=== PATIENT | female | born 1955 | race Caucasian/White ===

== ENCOUNTER 2017-10-09 11:59 | Inpatient (IN) | payer OTHER ==
[~2017-10-09] VITALS: Ht 162.6 cm; Wt 77.3 kg
[~2017-10-09 11:59] MED LIST: AMIO200T42 PO; CEFD250S26 PO; ESCI20TA10 PO; LORA1TAB PO; MORP100S3 PO; NYST1000 PO; PRED30TA2 PO; RIZA10TA34 PO
[2017-10-09] MEDS ORDERED: PLEASE ENTER HEIGHT AND WEIGHT MC SCH (12:30)
[2017-10-09] MEDS ORDERED: SODIUM CHLORIDE 0.9% 1,000ML IVBOLUS ONE ×2 (12:30→16:00)
[2017-10-09] MEDS ORDERED: SODIUM CHLORIDE FLUSH 10ML SYR IVF ONE (12:30)
[2017-10-09 13:00] LABS: MICROSCOPIC INDICATED
[2017-10-09 13:03] LABS: INTERNATIONAL NORMALIZED RATIO 1.08 (0.93-1.1); PROTHROMBIN TIME 11.1 Seconds (9.6-11.5)
[2017-10-09 13:04] LABS: MEAN CORPUSCULAR HEMOGLOBIN 32.6 pg (27.0-34.8); MEAN CORPUSCULAR HGB CONC 32.6 g/dL (32.4-35.8); MEAN CORPUSCULAR VOLUME 99.9 fL (80-100); MEAN PLATELET VOLUME 6.9 fL (7.4-10.4); PLATELET COUNT 333 x10^3/uL (130-400); RED BLOOD COUNT 2.76 x10^6/uL (3.82-5.3); RED CELL DISTRIBUTION WIDTH 22.9 % (9.6-15.2)
[2017-10-09 13:09] LABS: ALBUMIN 1.9 g/dL (3.4-5.0); ANION GAP 16 mmol/L (5-15); CALCIUM 8.9 mg/dL (8.5-10.1); CHLORIDE 93 mmol/L (98-107)
[2017-10-09 13:11] LABS: CULTURE INDICATED? NO
[2017-10-09 13:14] LABS: ALANINE AMINOTRANSFERASE 78 U/L (12-78); ALKALINE PHOSPHATASE 562 U/L (45-117); BILIRUBIN,TOTAL 1.7 mg/dL (0.2-1.0); CREATININE 1.01 mg/dL (0.55-1.02); TOTAL PROTEIN 6.5 g/dL (6.4-8.2)
[2017-10-09 13:36] LABS: BASOPHILS % (AUTO) 0 % (0-1); EOSINOPHILS # (AUTO) 0.01 x10^3/uL (0-0.4); EOSINOPHILS % (AUTO) 0 % (1-7); LYMPHOCYTES # (AUTO) 0.47 x10^3/uL (1-3.4); LYMPHOCYTES % (AUTO) 4 % (22-44); MD MORPH REVIEW ONLY; MONOCYTES # (AUTO) 0.09 x10^3/uL (0.2-0.8); MONOCYTES % (AUTO) 1 % (2-9); NEUTROPHILS # (AUTO) 11.43 x10^3/uL (1.8-6.8); NEUTROPHILS % (AUTO) 95 % (42-75)
[2017-10-09 13:38] LABS: ANISOCYTOSIS 1+; HOWELL-JOLLY BODIES 2+; HYPOCHROMIA 1+; OVALOCYTES 1+; SCHISTOCYTES 1+; SPHEROCYTES 1+
[2017-10-09 13:39] LABS: <PLATELET ESTIMATE> ADEQUATE
[2017-10-09 13:40] LABS: HYPOGRAN PLTS 1+; LARGE PLATELETS 1+
[2017-10-09 13:44] LABS: TARGET CELLS 1+
[2017-10-09] MEDS ORDERED: AZITHROMYCIN 500 MG in SODIUM CHLORIDE 0.9% 250 ML IV ONE (14:00)
[2017-10-09] MEDS ORDERED: POTASSIUM CHLORIDE 40 MEQ in SODIUM CHLORIDE 0.9% 500 ML IV ONE (14:00)
[2017-10-09] MEDS ORDERED: CEFTRIAXONE PMX 1GM/50ML 50 ML IV ONE (14:00)
[2017-10-09] MEDS ORDERED: CEFTRIAXONE PMX 1GM/50ML 50 ML ONE (14:30)
[2017-10-09] MEDS ORDERED: METOCLOPRAMIDE 5 MG/ML, 2ML ONE (14:30)
[2017-10-09] MEDS ORDERED: METOCLOPRAMIDE 5 MG/ML, 2ML IVPush ONE (14:30)
[2017-10-09] MEDS ORDERED: ACETAMINOPHEN 325 MG TABLET PO PRN (15:30)
[2017-10-09] MEDS ORDERED: LABETALOL 5MG/ML, 20ML IVPush PRN (15:30)
[2017-10-09] MEDS ORDERED: ENALAPRILAT 1.25 MG/ML, 2ML IVPush PRN (15:30)
[2017-10-09] MEDS ORDERED: POLYETHYLENE GLYCOL 17 GM PACKET PO PRN (15:30)
[2017-10-09] MEDS ORDERED: DOCUSATE 100 MG CAPSULE PO PRN (15:30)
[2017-10-09] MEDS ORDERED: BISACODYL 10 MG SUPP PR PRN (15:30)
[2017-10-09] MEDS ORDERED: LEVO100T5 PO (15:50)
[2017-10-09] MEDS ORDERED: RIVA10TA PO (15:50)
[2017-10-09] MEDS ORDERED: POTA25TA4 PO (15:50)
[2017-10-09] MEDS ORDERED: VANCOMYCIN PER PHARMACY MC PRN (16:00)
[2017-10-09 16:42] LABS: THYROID STIMULATING HORMONE 0.133 mIU/L (0.358-3.740)
[2017-10-09 17:05] VITALS: BP 117/75
[2017-10-09] MEDS ORDERED: PHARMACOKINETIC CONSULTATION MC ONE (17:30)
[2017-10-09] MEDS ORDERED: SODIUM CHLORIDE 0.9% IV SCH (17:30)
[2017-10-09] MEDS ORDERED: PHARMACOKINETIC MONITORING MC PRN (17:30)
[2017-10-09] MEDS: VANCOMYCIN 1,300 MG in SODIUM CHLORIDE 0.9% 250 ML IV SCH (17:30)
[2017-10-09] MEDS ORDERED: VANCOMYCIN IV SCH (17:30)
[2017-10-09] MEDS ORDERED: MAGNESIUM SULFATE PMX 2GM/50ML 50 ML IV ONE (18:00)
[2017-10-09] MEDS: SODIUM CHLORIDE 0.9% 1,000 ML IV SCH (19:00)
[2017-10-09 20:00] VITALS: BP 107/71
[2017-10-09 20:21] LABS: ANION GAP 10 mmol/L (5-15); CALCIUM 7.8 mg/dL (8.5-10.1); CHLORIDE 102 mmol/L (98-107); CREATININE 0.93 mg/dL (0.55-1.02)
[2017-10-09] MEDS: PIPERACILLIN/TAZO/PMX 4.5GM 100 ML IV SCH (22:24)
[2017-10-10] MEDS: SODIUM CHLORIDE 0.9% 1,000 ML IV SCH ×2 (04:00→20:52)
[2017-10-10 04:54] LABS: ALANINE AMINOTRANSFERASE 60 U/L (12-78); ALBUMIN 1.5 g/dL (3.4-5.0); ANION GAP 11 mmol/L (5-15); CALCIUM 7.6 mg/dL (8.5-10.1); CHLORIDE 103 mmol/L (98-107); CREATININE 0.94 mg/dL (0.55-1.02)
[2017-10-10 04:56] LABS: ALKALINE PHOSPHATASE 396 U/L (45-117); TOTAL PROTEIN 5.3 g/dL (6.4-8.2)
[2017-10-10 05:00] LABS: MEAN CORPUSCULAR HEMOGLOBIN 32.9 pg (27.0-34.8); MEAN CORPUSCULAR HGB CONC 32.9 g/dL (32.4-35.8); MEAN PLATELET VOLUME 6.9 fL (7.4-10.4); PLATELET COUNT 204 x10^3/uL (130-400); RED BLOOD COUNT 2.42 x10^6/uL (3.82-5.3)
[2017-10-10 05:35] LABS: MD YES
[2017-10-10 05:37] LABS: ANISOCYTOSIS 1+; BAND#(MANUAL) 0.81 x10^3/uL; BANDS%(MANUAL) 8 % (0-7); LYMPHS% (MANUAL) 4 % (22-44); SEG#(MANUAL) 8.89 x10^3/uL (1.8-6.8); SEGS% (MANUAL) 88 % (42-75)
[2017-10-10 05:38] LABS: OVALOCYTES 1+; SCHISTOCYTES 1+
[2017-10-10 05:40] LABS: SPHEROCYTES 1+
[2017-10-10 05:41] LABS: <PLATELET ESTIMATE> ADEQUATE; HOWELL-JOLLY BODIES 1+; LARGE PLATELETS 1+
[2017-10-10] MEDS: PIPERACILLIN/TAZO/PMX 4.5GM 100 ML IV SCH ×4 (05:49→22:39)
[2017-10-10 06:55] VITALS: BP 112/66
[2017-10-10] MEDS: ONDANSETRON 2MG/ML, 2ML IVPush PRN (10:08)
[2017-10-10] MEDS: VANCOMYCIN 1,300 MG in SODIUM CHLORIDE 0.9% 250 ML IV SCH (11:26)
[2017-10-10] MEDS: morphine SULFATE 10 MG/ML, 1ML IVPush PRN ×3 (11:26→23:18)
[2017-10-10 12:35] VITALS: BP 123/70
[2017-10-10] MEDS ORDERED: OMNIPAQUE 350 MG/ML, 100ML BOTTLE ONE (12:47)
[2017-10-10] MEDS ORDERED: [UNRECOGNIZED DRUG - OTHER] MC SCH (15:30)
[2017-10-10 19:46] VITALS: BP 106/60
[2017-10-10] MEDS: K-LYTE 25 MEQ TABLET.EFF PO SCH (20:52)
[2017-10-11 02:00] VITALS: BP 114/72
[2017-10-11] MEDS: SODIUM CHLORIDE 0.9% 1,000 ML IV SCH ×2 (04:00→17:12)
[2017-10-11] MEDS: morphine SULFATE 10 MG/ML, 1ML IVPush PRN ×3 (04:42→19:22)
[2017-10-11] MEDS: PIPERACILLIN/TAZO/PMX 4.5GM 100 ML IV SCH ×4 (04:42→23:07)
[2017-10-11 05:00] LABS: ALBUMIN 1.4 g/dL (3.4-5.0); ANION GAP 11 mmol/L (5-15); CHLORIDE 104 mmol/L (98-107); MEAN CORPUSCULAR HEMOGLOBIN 32.5 pg (27.0-34.8); MEAN CORPUSCULAR HGB CONC 32.5 g/dL (32.4-35.8); MEAN CORPUSCULAR VOLUME 100.1 fL (80-100); MEAN PLATELET VOLUME 6.9 fL (7.4-10.4); PLATELET COUNT 133 x10^3/uL (130-400); RED BLOOD COUNT 2.23 x10^6/uL (3.82-5.3)
[2017-10-11 05:03] LABS: ALANINE AMINOTRANSFERASE 57 U/L (12-78); ALKALINE PHOSPHATASE 347 U/L (45-117); BILIRUBIN,TOTAL 0.6 mg/dL (0.2-1.0); CREATININE 0.84 mg/dL (0.55-1.02); TOTAL PROTEIN 5.4 g/dL (6.4-8.2)
[2017-10-11] MEDS: VANCOMYCIN 1,300 MG in SODIUM CHLORIDE 0.9% 250 ML IV SCH ×2 (06:04→23:53)
[2017-10-11 07:04] LABS: MD YES
[2017-10-11 07:06] LABS: BAND#(MANUAL) 0.94 x10^3/uL; BANDS%(MANUAL) 8 % (0-7); BASOS#(MANUAL) 0.12 x10^3/uL (0-0.1); BASOS% (MANUAL) 1 % (0-1)
[2017-10-11 07:08] LABS: ANISOCYTOSIS 1+; LYMPH#(MANUAL) 0.24 x10^3/uL (1-3.4); LYMPHS% (MANUAL) 2 % (22-44); SEGS% (MANUAL) 89 % (42-75)
[2017-10-11 07:09] LABS: OVALOCYTES 1+; SCHISTOCYTES 1+; SPHEROCYTES 1+; TARGET CELLS 1+
[2017-10-11 07:10] LABS: <PLATELET ESTIMATE> ADEQUATE; HOWELL-JOLLY BODIES 2+
[2017-10-11 07:11] LABS: HYPOGRAN PLTS 1+; LARGE PLATELETS 1+
[2017-10-11 07:50] VITALS: BP 120/73
[2017-10-11] MEDS ORDERED: RIVAROXABAN 10 MG TABLET PO SCH (09:00)
[2017-10-11] MEDS: LEVOTHYROXINE 100 MCG TABLET PO SCH (09:10)
[2017-10-11] MEDS: K-LYTE 25 MEQ TABLET.EFF PO SCH (09:10)
[2017-10-11 11:57] VITALS: BP 113/69
[2017-10-11 15:13] LABS: OCCULT BLOOD POSITIVE (NEGATIVE)
[2017-10-11] MEDS ORDERED: POTASSIUM CHLORIDE 40 MEQ in SODIUM CHLORIDE 0.9% 100 ML IV ONE (16:30)
[2017-10-11] MEDS ORDERED: POTASSIUM CHLORIDE 40 MEQ in SODIUM CHLORIDE 0.9% 500 ML IV ONE (16:30)
[2017-10-11] MEDS: LORazepam 1MG TABLET PO PRN (17:11)
[2017-10-11 18:28] VITALS: BP 121/75
[2017-10-11] MEDS ORDERED: HEPARIN 5,000 UNITS/ML, 1ML IV ONE (18:30)
[2017-10-11] MEDS: TOPIRAMATE 25 MG TABLET PO SCH (19:23)
[2017-10-11] MEDS: ONDANSETRON 2MG/ML, 2ML IVPush PRN (23:01)
[2017-10-12] VITALS (7 sets, daily range): BP systolic 97–131; BP diastolic 58–79
[2017-10-12] MEDS: morphine SULFATE 10 MG/ML, 1ML IVPush PRN ×4 (00:12→20:56)
[2017-10-12] MEDS: HEPARIN 25,000 UNITS/500ML PMX 500 ML IV PRN (00:22)
[2017-10-12] MEDS ORDERED: HEPARIN 5,000 UNITS/ML, 1ML IV ONE (01:00)
[2017-10-12] MEDS: LEVOTHYROXINE 100 MCG TABLET PO SCH (04:53)
[2017-10-12] MEDS: PIPERACILLIN/TAZO/PMX 4.5GM 100 ML IV SCH ×4 (04:53→22:24)
[2017-10-12 07:09] LABS: ALANINE AMINOTRANSFERASE 53 U/L (12-78); ALBUMIN 1.4 g/dL (3.4-5.0); ANION GAP 11 mmol/L (5-15); CALCIUM 8.3 mg/dL (8.5-10.1); CHLORIDE 104 mmol/L (98-107); CREATININE 0.84 mg/dL (0.55-1.02)
[2017-10-12 07:11] LABS: ALKALINE PHOSPHATASE 373 U/L (45-117); BILIRUBIN,TOTAL 1.3 mg/dL (0.2-1.0); TOTAL PROTEIN 5.5 g/dL (6.4-8.2)
[2017-10-12 07:36] LABS: MD YES; MEAN CORPUSCULAR HEMOGLOBIN 32.2 pg (27.0-34.8); MEAN CORPUSCULAR HGB CONC 33.6 g/dL (32.4-35.8); MEAN CORPUSCULAR VOLUME 95.9 fL (80-100); MEAN PLATELET VOLUME 6.9 fL (7.4-10.4); PLATELET COUNT 79 x10^3/uL (130-400); RED BLOOD COUNT 2.69 x10^6/uL (3.82-5.3); RED CELL DISTRIBUTION WIDTH 24.7 % (9.6-15.2)
[2017-10-12 07:38] LABS: ANISOCYTOSIS 1+; BAND#(MANUAL) 0.78 x10^3/uL; BANDS%(MANUAL) 6 % (0-7); HOWELL-JOLLY BODIES 1+; LYMPH#(MANUAL) 0.13 x10^3/uL (1-3.4); LYMPHS% (MANUAL) 1 % (22-44); METAMYELOCYTES# (MANUAL) 0.13 x10^3/uL (0-0); METAMYELOCYTES% (MANUAL) 1 % (0-1); MONOS#(MANUAL) 0.26 x10^3/uL (0.3-2.7); MONOS% (MANUAL) 2 % (2-9); NRBC % (MANUAL) 1 % (0-1); SCHISTOCYTES 1+; SEGS% (MANUAL) 90 % (42-75)
[2017-10-12 07:39] LABS: <PLATELET ESTIMATE> DECREASED; OVALOCYTES 1+; SPHEROCYTES 1+
[2017-10-12 07:40] LABS: HYPOGRAN PLTS 1+; LARGE PLATELETS 1+
[2017-10-12] MEDS ORDERED: LORazepam 1MG TABLET PO SCH (09:00)
[2017-10-12] MEDS: POTASSIUM CHLORIDE 20 MEQ TAB.ER.PRT PO SCH ×2 (09:08→16:45)
[2017-10-12] MEDS: TOPIRAMATE 25 MG TABLET PO SCH (09:09)
[2017-10-12] MEDS: HEPARIN 5,000 UNITS/ML, 1ML IV PRN ×2 (11:02→21:05)
[2017-10-12] MEDS: SODIUM CHLORIDE 0.9% 1,000 ML IV SCH (13:00)
[2017-10-12] MEDS: PANTOPRAZOLE 40 MG IV IVPush SCH ×2 (13:08→23:01)
[2017-10-12] MEDS: LORazepam 1MG TABLET PO PRN ×2 (13:30→23:01)
[2017-10-12] MEDS ORDERED: GOLYTELY 4,000ML ORAL.SOL PO ONE (16:00)
[2017-10-12] MEDS ORDERED: VANCOMYCIN 1,400 MG in SODIUM CHLORIDE 0.9% 250 ML IV SCH (23:00)
[2017-10-13] MEDS: HEPARIN 25,000 UNITS/500ML PMX 500 ML IV PRN (00:57)
[2017-10-13 02:25] VITALS: BP 136/82
[2017-10-13] MEDS: SODIUM CHLORIDE 0.9% 1,000 ML IV SCH (03:00)
[2017-10-13 03:42] LABS: MEAN CORPUSCULAR HEMOGLOBIN 31.2 pg (27.0-34.8); MEAN CORPUSCULAR HGB CONC 33.1 g/dL (32.4-35.8); MEAN CORPUSCULAR VOLUME 94.1 fL (80-100); MEAN PLATELET VOLUME 7.4 fL (7.4-10.4); PLATELET COUNT 61 x10^3/uL (130-400); RED BLOOD COUNT 2.77 x10^6/uL (3.82-5.3); RED CELL DISTRIBUTION WIDTH 24.2 % (9.6-15.2)
[2017-10-13 03:52] LABS: ALANINE AMINOTRANSFERASE 56 U/L (12-78); ALBUMIN 1.4 g/dL (3.4-5.0); ANION GAP 9 mmol/L (5-15); CALCIUM 8.3 mg/dL (8.5-10.1); CHLORIDE 108 mmol/L (98-107); CREATININE 0.84 mg/dL (0.55-1.02)
[2017-10-13 03:54] LABS: ALKALINE PHOSPHATASE 394 U/L (45-117); BILIRUBIN,TOTAL 0.8 mg/dL (0.2-1.0); TOTAL PROTEIN 5.4 g/dL (6.4-8.2)
[2017-10-13 03:56] LABS: MD YES
[2017-10-13 03:58] LABS: BAND#(MANUAL) 0.43 x10^3/uL; BANDS%(MANUAL) 4 % (0-7); METAMYELOCYTES# (MANUAL) 0.11 x10^3/uL (0-0); METAMYELOCYTES% (MANUAL) 1 % (0-1); MONOS#(MANUAL) 0.11 x10^3/uL (0.3-2.7); MONOS% (MANUAL) 1 % (2-9); NRBC % (MANUAL) 4 % (0-1); SEG#(MANUAL) 10.15 x10^3/uL (1.8-6.8); SEGS% (MANUAL) 94 % (42-75)
[2017-10-13 04:00] LABS: ANISOCYTOSIS 1+
[2017-10-13 04:01] LABS: <PLATELET ESTIMATE> DECREASED; HOWELL-JOLLY BODIES 1+; HYPOCHROMIA 1+; OVALOCYTES 1+; POLYCHROMASIA 1+; SCHISTOCYTES 1+; SPHEROCYTES 1+; TARGET CELLS 1+
[2017-10-13 04:02] LABS: HYPOGRAN PLTS 1+; LARGE PLATELETS 1+
[2017-10-13] MEDS: PIPERACILLIN/TAZO/PMX 4.5GM 100 ML IV SCH (04:39)
[2017-10-13] MEDS: LEVOTHYROXINE 100 MCG TABLET PO SCH (06:16)
[2017-10-13 08:00] VITALS: BP 127/77
[2017-10-13] MEDS: POTASSIUM CHLORIDE 20 MEQ TAB.ER.PRT PO SCH ×2 (09:30→17:58)
[2017-10-13] MEDS: TOPIRAMATE 25 MG TABLET PO SCH (09:30)
[2017-10-13] MEDS ORDERED: MIDAZOLAM 1 MG/ML, 2ML ONE (11:50)
[2017-10-13] MEDS ORDERED: FENTANYL PF 100 MCG/2ML ONE (11:50)
[2017-10-13] MEDS ORDERED: ACETAMINOPHEN 325 MG TABLET PO PRN (12:00)
[2017-10-13] MEDS ORDERED: HYDROmorphone 1 MG/ML, 1ML IV PRN (12:00)
[2017-10-13] MEDS ORDERED: hydrALAzine 20 MG/ML, 1ML IV PRN (12:00)
[2017-10-13] MEDS ORDERED: PROMETHAZINE 25 MG/ML, 1ML IV PRN (12:00)
[2017-10-13] MEDS ORDERED: FENTANYL PF 100 MCG/2ML IV PRN (12:00)
[2017-10-13] MEDS ORDERED: MEPERIDINE/PF 25MG/0.5ML IVPush PRN (12:00)
[2017-10-13] MEDS ORDERED: morphine SULFATE 10 MG/ML, 1ML IV PRN (12:00)
[2017-10-13] MEDS ORDERED: ONDANSETRON 2MG/ML, 2ML IVPush PRN (12:00)
[2017-10-13] MEDS ORDERED: OXYcodone 5 MG/5 ML ORAL.SOL UDC PO PRN (12:00)
[2017-10-13] MEDS ORDERED: LABETALOL 5MG/ML, 20ML IV PRN (12:00)
[2017-10-13] MEDS ORDERED: ONDANSETRON 2MG/ML, 2ML ONE (12:15)
[2017-10-13] MEDS: DOXYCYCLINE 100 MG in DEXTROSE 5% 250 ML IV SCH (13:38)
[2017-10-13] MEDS: PANTOPRAZOLE 40 MG IV IVPush SCH ×2 (13:38→23:17)
[2017-10-13] MEDS: CEFTRIAXONE PMX 1GM/50ML 50 ML IV SCH (15:03)
[2017-10-13 15:58] VITALS: BP 138/82
[2017-10-13] MEDS ORDERED: GOLYTELY 4,000ML ORAL.SOL PO ONE (17:00)
[2017-10-13] MEDS: morphine SULFATE 10 MG/ML, 1ML IVPush PRN (17:58)
[2017-10-13] MEDS: LORazepam 1MG TABLET PO PRN (20:12)
[2017-10-13 20:32] VITALS: BP 121/76
[2017-10-13] MEDS: ONDANSETRON 2MG/ML, 2ML IVPush PRN (23:15)
[2017-10-14] MEDS: DOXYCYCLINE 100 MG in DEXTROSE 5% 250 ML IV SCH ×2 (00:33→12:07)
[2017-10-14] MEDS ORDERED: POLYETHYLENE GLYCOL 17 GM PACKET PO ONE (01:30)
[2017-10-14] MEDS ORDERED: ONDANSETRON 2MG/ML, 2ML IVPush ONE (02:00)
[2017-10-14] MEDS: morphine SULFATE 10 MG/ML, 1ML IVPush PRN ×3 (02:24→23:35)
[2017-10-14 02:30] VITALS: BP 143/87
[2017-10-14 05:09] VITALS: BP 92/61
[2017-10-14] MEDS: LEVOTHYROXINE 100 MCG TABLET PO SCH (05:35)
[2017-10-14 05:54] LABS: MEAN PLATELET VOLUME 8.2 fL (7.4-10.4); RED BLOOD COUNT 2.94 x10^6/uL (3.82-5.3); RED CELL DISTRIBUTION WIDTH 24.3 % (9.6-15.2)
[2017-10-14 05:57] LABS: ALANINE AMINOTRANSFERASE 64 U/L (12-78); ALBUMIN 1.4 g/dL (3.4-5.0); ANION GAP 9 mmol/L (5-15); CALCIUM 8.1 mg/dL (8.5-10.1); CHLORIDE 106 mmol/L (98-107); CREATININE 0.86 mg/dL (0.55-1.02); PLATELET COUNT 42 x10^3/uL (130-400)
[2017-10-14 05:59] LABS: ALKALINE PHOSPHATASE 479 U/L (45-117); BILIRUBIN,TOTAL 0.6 mg/dL (0.2-1.0); TOTAL PROTEIN 5.3 g/dL (6.4-8.2)
[2017-10-14 06:13] LABS: MD YES
[2017-10-14 06:16] LABS: BAND#(MANUAL) 0.33 x10^3/uL; BANDS%(MANUAL) 4 % (0-7); EOS#(MANUAL) 0.25 x10^3/uL (0.0-0.4); EOS% (MANUAL) 3 % (1-7); LYMPH#(MANUAL) 0.17 x10^3/uL (1-3.4); LYMPHS% (MANUAL) 2 % (22-44); METAMYELOCYTES# (MANUAL) 0.08 x10^3/uL (0-0); METAMYELOCYTES% (MANUAL) 1 % (0-1); MONOS#(MANUAL) 0.17 x10^3/uL (0.3-2.7); MONOS% (MANUAL) 2 % (2-9); NRBC % (MANUAL) 4 % (0-1); SEGS% (MANUAL) 88 % (42-75)
[2017-10-14 06:17] LABS: ANISOCYTOSIS 1+; HOWELL-JOLLY BODIES 1+; OVALOCYTES 1+; POLYCHROMASIA 1+
[2017-10-14 06:20] LABS: SCHISTOCYTES 1+
[2017-10-14 06:21] LABS: <PLATELET ESTIMATE> DECREASED; <PLT MORPHOLOGY> NORMAL PLT MORPH; SPHEROCYTES 1+
[2017-10-14 07:55] VITALS: BP 102/68
[2017-10-14] MEDS: POTASSIUM CHLORIDE 20 MEQ TAB.ER.PRT PO SCH ×2 (12:00→18:18)
[2017-10-14] MEDS: PANTOPRAZOLE 40 MG IV IVPush SCH ×2 (12:00→23:13)
[2017-10-14] MEDS: TOPIRAMATE 25 MG TABLET PO SCH (12:00)
[2017-10-14] MEDS: CEFTRIAXONE PMX 1GM/50ML 50 ML IV SCH (14:04)
[2017-10-14 16:00] VITALS: BP 108/72
[2017-10-14] MEDS ORDERED: GOLYTELY 4,000ML ORAL.SOL PO ONE (17:00)
[2017-10-14 19:52] VITALS: BP 123/85
[2017-10-15] VITALS (7 sets, daily range): BP systolic 107–120; BP diastolic 69–76
[2017-10-15] MEDS: DOXYCYCLINE 100 MG in DEXTROSE 5% 250 ML IV SCH ×2 (00:16→18:24)
[2017-10-15] MEDS: LEVOTHYROXINE 100 MCG TABLET PO SCH (05:51)
[2017-10-15 06:30] LABS: CHLORIDE 107 mmol/L (98-107)
[2017-10-15 06:50] LABS: MD YES; MEAN CORPUSCULAR HEMOGLOBIN 32.4 pg (27.0-34.8); MEAN CORPUSCULAR HGB CONC 33.3 g/dL (32.4-35.8); MEAN CORPUSCULAR VOLUME 97.6 fL (80-100); MEAN PLATELET VOLUME 8.8 fL (7.4-10.4); RED BLOOD COUNT 2.96 x10^6/uL (3.82-5.3); RED CELL DISTRIBUTION WIDTH 24.3 % (9.6-15.2)
[2017-10-15 06:55] LABS: ALANINE AMINOTRANSFERASE 69 U/L (12-78); ALBUMIN 1.4 g/dL (3.4-5.0); ALKALINE PHOSPHATASE 548 U/L (45-117); ANION GAP 10 mmol/L (5-15); BILIRUBIN,TOTAL 0.4 mg/dL (0.2-1.0); CALCIUM 8.5 mg/dL (8.5-10.1); CREATININE 0.81 mg/dL (0.55-1.02); PLATELET COUNT 39 x10^3/uL (130-400); TOTAL PROTEIN 5.4 g/dL (6.4-8.2)
[2017-10-15 07:00] LABS: BAND#(MANUAL) 0.18 x10^3/uL; BANDS%(MANUAL) 2 % (0-7); EOS#(MANUAL) 0.18 x10^3/uL (0.0-0.4); EOS% (MANUAL) 2 % (1-7); METAMYELOCYTES# (MANUAL) 0.09 x10^3/uL (0-0); METAMYELOCYTES% (MANUAL) 1 % (0-1); NRBC % (MANUAL) 4 % (0-1); SEG#(MANUAL) 7.82 x10^3/uL (1.8-6.8); SEGS% (MANUAL) 85 % (42-75)
[2017-10-15 07:01] LABS: HOWELL-JOLLY BODIES 1+; LYMPH#(MANUAL) 0.37 x10^3/uL (1-3.4); LYMPHS% (MANUAL) 4 % (22-44); MONOS#(MANUAL) 0.55 x10^3/uL (0.3-2.7); MONOS% (MANUAL) 6 % (2-9)
[2017-10-15 07:02] LABS: ANISOCYTOSIS 1+; POLYCHROMASIA 1+
[2017-10-15 07:03] LABS: HYPOCHROMIA 1+; OVALOCYTES 1+; SCHISTOCYTES 1+; SPHEROCYTES 1+
[2017-10-15 07:04] LABS: <PLATELET ESTIMATE> DECREASED; LARGE PLATELETS 1+
[2017-10-15] MEDS: POTASSIUM CHLORIDE 20 MEQ TAB.ER.PRT PO SCH ×2 (08:00→18:24)
[2017-10-15] MEDS: TOPIRAMATE 25 MG TABLET PO SCH (09:00)
[2017-10-15] MEDS: ONDANSETRON 2MG/ML, 2ML IVPush PRN (09:01)
[2017-10-15] MEDS: morphine SULFATE 10 MG/ML, 1ML IVPush PRN ×4 (09:12→21:41)
[2017-10-15] MEDS: PANTOPRAZOLE 40 MG IV IVPush SCH ×2 (11:30→22:59)
[2017-10-15] MEDS: CEFTRIAXONE PMX 1GM/50ML 50 ML IV SCH (12:54)
[2017-10-15] MEDS ORDERED: PROPOFOL 10 MG/ML, 20ML ONE (16:10)
[2017-10-15] MEDS ORDERED: MIDAZOLAM 1 MG/ML, 2ML ONE (16:22)
[2017-10-15] MEDS ORDERED: ONDANSETRON 2MG/ML, 2ML ONE (16:23)
[2017-10-15] MEDS ORDERED: METOPROLOL 1 MG/ML, 5ML IV PRN (16:30)
[2017-10-15] MEDS ORDERED: ALBUTEROL SULFATE 2.5 MG/3 ML NPPB PRN (16:30)
[2017-10-15] MEDS ORDERED: ONDANSETRON 2MG/ML, 2ML IVPush PRN (16:30)
[2017-10-15] MEDS ORDERED: HYDROcodone/APAP 7.5-325MG/15ML UDC PO PRN (16:30)
[2017-10-15] MEDS ORDERED: EPHEDRINE 50 MG/ML, 1ML IVPush PRN (16:30)
[2017-10-15] MEDS ORDERED: MEPERIDINE/PF 25MG/0.5ML IVPush PRN (16:30)
[2017-10-15] MEDS ORDERED: hydrALAzine 20 MG/ML, 1ML IV PRN (16:30)
[2017-10-15] MEDS ORDERED: HYDROmorphone 1 MG/ML, 1ML IV PRN (16:30)
[2017-10-15] MEDS ORDERED: PROMETHAZINE 25 MG/ML, 1ML IV PRN (16:30)
[2017-10-15] MEDS ORDERED: LABETALOL 5MG/ML, 20ML IV PRN (16:30)
[2017-10-15] MEDS ORDERED: FENTANYL PF 100 MCG/2ML IV PRN (16:30)
[2017-10-15] MEDS ORDERED: ACETAMINOPHEN 325 MG TABLET PO PRN (16:30)
[2017-10-15] MEDS ORDERED: OXYcodone 5 MG/5 ML ORAL.SOL UDC PO PRN (16:30)
[2017-10-15] MEDS ORDERED: METOCLOPRAMIDE 5 MG/ML, 2ML IV PRN (16:30)
[2017-10-15] MEDS ORDERED: PROMETHAZINE 25 MG/ML, 1ML ONE (16:58)
[2017-10-15] MEDS: LORazepam 1MG TABLET PO PRN (21:41)
[2017-10-16] VITALS (7 sets, daily range): BP systolic 110–125; BP diastolic 68–77
[2017-10-16] MEDS: DOXYCYCLINE 100 MG in DEXTROSE 5% 250 ML IV SCH ×3 (00:47→23:53)
[2017-10-16] MEDS: morphine SULFATE 10 MG/ML, 1ML IVPush PRN ×5 (08:29→21:44)
[2017-10-16] MEDS: TOPIRAMATE 25 MG TABLET PO SCH (08:29)
[2017-10-16] MEDS: POTASSIUM CHLORIDE 20 MEQ TAB.ER.PRT PO SCH ×2 (08:29→18:30)
[2017-10-16] MEDS: LEVOTHYROXINE 100 MCG TABLET PO SCH (08:29)
[2017-10-16 09:31] LABS: ALBUMIN 1.5 g/dL (3.4-5.0); CHLORIDE 106 mmol/L (98-107)
[2017-10-16 09:35] LABS: ALANINE AMINOTRANSFERASE 58 U/L (12-78); ALKALINE PHOSPHATASE 608 U/L (45-117); ANION GAP 10 mmol/L (5-15); BILIRUBIN,TOTAL 0.6 mg/dL (0.2-1.0); CREATININE 0.88 mg/dL (0.55-1.02); TOTAL PROTEIN 5.2 g/dL (6.4-8.2)
[2017-10-16 10:28] LABS: MEAN CORPUSCULAR HEMOGLOBIN 31.8 pg (27.0-34.8); MEAN CORPUSCULAR VOLUME 96.4 fL (80-100); MEAN PLATELET VOLUME 9.2 fL (7.4-10.4); RED BLOOD COUNT 3.06 x10^6/uL (3.82-5.3)
[2017-10-16 10:31] LABS: PLATELET COUNT 33 x10^3/uL (130-400)
[2017-10-16 10:40] LABS: MD YES
[2017-10-16 10:43] LABS: BAND#(MANUAL) 0.66 x10^3/uL; BANDS%(MANUAL) 9 % (0-7); EOS#(MANUAL) 0.22 x10^3/uL (0.0-0.4); EOS% (MANUAL) 3 % (1-7); LYMPH#(MANUAL) 0.29 x10^3/uL (1-3.4); LYMPHS% (MANUAL) 4 % (22-44); MONOS#(MANUAL) 0.29 x10^3/uL (0.3-2.7); MONOS% (MANUAL) 4 % (2-9); NRBC % (MANUAL) 7 % (0-1); REACTIVE LYMPHS # (MANUAL) 0.07 x10^3/uL (0-0); REACTIVE LYMPHS % (MANUAL) 1 % (0-0); SEG#(MANUAL) 5.77 x10^3/uL (1.8-6.8); SEGS% (MANUAL) 79 % (42-75)
[2017-10-16 10:45] LABS: HOWELL-JOLLY BODIES 1+; OVALOCYTES 1+; SCHISTOCYTES 1+; SPHEROCYTES 1+
[2017-10-16 10:46] LABS: <PLATELET ESTIMATE> DECREASED; <PLT MORPHOLOGY> NORMAL PLT MORPH; ANISOCYTOSIS 2+; HYPOCHROMIA 1+; POLYCHROMASIA 1+; TARGET CELLS 1+
[2017-10-16] MEDS: FUROSEMIDE 20 MG/2 ML IV SCH (11:29)
[2017-10-16] MEDS: PANTOPRAZOLE 40 MG IV IVPush SCH ×2 (12:13→23:49)
[2017-10-16] MEDS: CEFTRIAXONE PMX 1GM/50ML 50 ML IV SCH (12:14)
[2017-10-16] MEDS: RIVAROXABAN 15 MG TABLET PO SCH (18:30)
[2017-10-16] MEDS: LORazepam 1MG TABLET PO PRN (21:43)
[2017-10-17 01:33] VITALS: BP 112/71
[2017-10-17] MEDS: LEVOTHYROXINE 100 MCG TABLET PO SCH (06:02)
[2017-10-17 06:35] LABS: ALBUMIN 1.6 g/dL (3.4-5.0); CALCIUM 8.7 mg/dL (8.5-10.1); CHLORIDE 105 mmol/L (98-107)
[2017-10-17 06:39] LABS: ALANINE AMINOTRANSFERASE 56 U/L (12-78); ALKALINE PHOSPHATASE 596 U/L (45-117); ANION GAP 9 mmol/L (5-15); BILIRUBIN,TOTAL 0.5 mg/dL (0.2-1.0); TOTAL PROTEIN 5.8 g/dL (6.4-8.2)
[2017-10-17 06:49] LABS: MEAN CORPUSCULAR HEMOGLOBIN 32.2 pg (27.0-34.8); MEAN CORPUSCULAR HGB CONC 33.1 g/dL (32.4-35.8); MEAN CORPUSCULAR VOLUME 97.2 fL (80-100); RED BLOOD COUNT 2.91 x10^6/uL (3.82-5.3); RED CELL DISTRIBUTION WIDTH 23.8 % (9.6-15.2)
[2017-10-17 06:53] LABS: MEAN PLATELET VOLUME 9.7 fL (7.4-10.4)
[2017-10-17 06:54] LABS: PLATELET COUNT 45 x10^3/uL (130-400)
[2017-10-17 06:55] LABS: MD YES
[2017-10-17 07:07] LABS: BAND#(MANUAL) 0.73 x10^3/uL; BANDS%(MANUAL) 9 % (0-7); BASOS#(MANUAL) 0.08 x10^3/uL (0-0.1); BASOS% (MANUAL) 1 % (0-1); EOS#(MANUAL) 0.16 x10^3/uL (0.0-0.4); EOS% (MANUAL) 2 % (1-7); LYMPH#(MANUAL) 0.32 x10^3/uL (1-3.4); LYMPHS% (MANUAL) 4 % (22-44); MONOS#(MANUAL) 0.32 x10^3/uL (0.3-2.7); MONOS% (MANUAL) 4 % (2-9); NRBC % (MANUAL) 6 % (0-1); SEG#(MANUAL) 6.48 x10^3/uL (1.8-6.8); SEGS% (MANUAL) 80 % (42-75)
[2017-10-17 07:12] LABS: ANISOCYTOSIS 2+; HOWELL-JOLLY BODIES 1+; OVALOCYTES 1+; POLYCHROMASIA 1+; TARGET CELLS 1+
[2017-10-17 07:13] LABS: SCHISTOCYTES 1+
[2017-10-17 07:14] LABS: <PLATELET ESTIMATE> DECREASED; <PLT MORPHOLOGY> NORMAL PLT MORPH
[2017-10-17 07:55] VITALS: BP 123/81
[2017-10-17] MEDS: FUROSEMIDE 20 MG/2 ML IV SCH (08:10)
[2017-10-17] MEDS: TOPIRAMATE 25 MG TABLET PO SCH (08:11)
[2017-10-17] MEDS: RIVAROXABAN 15 MG TABLET PO SCH ×2 (08:11→16:46)
[2017-10-17] MEDS: POTASSIUM CHLORIDE 20 MEQ TAB.ER.PRT PO SCH ×2 (08:11→16:45)
[2017-10-17] MEDS: morphine SULFATE 10 MG/ML, 1ML IVPush PRN ×3 (08:20→20:43)
[2017-10-17] MEDS: PANTOPRAZOLE 40 MG IV IVPush SCH ×2 (10:51→23:19)
[2017-10-17] MEDS ORDERED: DOXY100T PO (11:16)
[2017-10-17] MEDS ORDERED: CEFD300C37 PO (11:16)
[2017-10-17] MEDS ORDERED: POTA20TA6 PO (11:16)
[2017-10-17] MEDS ORDERED: RIVA15TA PO (11:16)
[2017-10-17] MEDS ORDERED: TOPI25TA32 PO (11:16)
[2017-10-17] MEDS ORDERED: HYDR-3240 PO (11:16)
[2017-10-17] MEDS ORDERED: PRED20TA PO (11:16)
[2017-10-17] MEDS ORDERED: PANT40TA3 PO (11:16)
[2017-10-17] MEDS ORDERED: LORA-446 PO (11:16)
[2017-10-17] MEDS: CEFTRIAXONE 1,000 MG in DEXTROSE 5% 50 ML IV SCH (11:39)
[2017-10-17] MEDS: DOXYCYCLINE 100 MG in DEXTROSE 5% 250 ML IV SCH (12:07)
[2017-10-17 14:00] VITALS: BP 111/74
[2017-10-17] MEDS: LORazepam 1MG TABLET PO PRN (16:11)
[2017-10-17 20:17] VITALS: BP 125/76
[2017-10-18] MEDS: LORazepam 1MG TABLET PO PRN ×2 (00:39→19:20)
[2017-10-18] MEDS: DOXYCYCLINE 100 MG in DEXTROSE 5% 250 ML IV SCH ×2 (00:39→13:18)
[2017-10-18] MEDS: morphine SULFATE 10 MG/ML, 1ML IVPush PRN ×5 (00:40→20:54)
[2017-10-18 02:14] VITALS: BP 120/76
[2017-10-18] MEDS: LEVOTHYROXINE 100 MCG TABLET PO SCH (05:13)
[2017-10-18 07:29] LABS: ANION GAP 8 mmol/L (5-15); CALCIUM 8.4 mg/dL (8.5-10.1); CHLORIDE 106 mmol/L (98-107); CREATININE 0.91 mg/dL (0.55-1.02)
[2017-10-18 07:48] VITALS: BP 111/75
[2017-10-18 07:56] LABS: MEAN CORPUSCULAR HEMOGLOBIN 31.2 pg (27.0-34.8); MEAN CORPUSCULAR HGB CONC 32.7 g/dL (32.4-35.8); MEAN CORPUSCULAR VOLUME 95.6 fL (80-100); RED BLOOD COUNT 2.96 x10^6/uL (3.82-5.3); RED CELL DISTRIBUTION WIDTH 23.5 % (9.6-15.2)
[2017-10-18 07:57] LABS: MD YES; MEAN PLATELET VOLUME 10.7 fL (7.4-10.4); PLATELET COUNT 68 x10^3/uL (130-400)
[2017-10-18 08:02] LABS: BAND#(MANUAL) 0.85 x10^3/uL; BANDS%(MANUAL) 11 % (0-7); BASOS#(MANUAL) 0.08 x10^3/uL (0-0.1); BASOS% (MANUAL) 1 % (0-1); LYMPH#(MANUAL) 0.23 x10^3/uL (1-3.4); LYMPHS% (MANUAL) 3 % (22-44); MONOS#(MANUAL) 0.69 x10^3/uL (0.3-2.7); MONOS% (MANUAL) 9 % (2-9); NRBC % (MANUAL) 2 % (0-1); SEG#(MANUAL) 5.85 x10^3/uL (1.8-6.8); SEGS% (MANUAL) 76 % (42-75)
[2017-10-18 08:03] LABS: ANISOCYTOSIS 2+
[2017-10-18 08:04] LABS: <PLATELET ESTIMATE> DECREASED; <PLT MORPHOLOGY> NORMAL PLT MORPH; HOWELL-JOLLY BODIES 1+; OVALOCYTES 1+; POLYCHROMASIA 1+; TARGET CELLS 1+
[2017-10-18] MEDS: FUROSEMIDE 20 MG/2 ML IV SCH (08:55)
[2017-10-18] MEDS: POTASSIUM CHLORIDE 20 MEQ TAB.ER.PRT PO SCH ×2 (08:58→16:48)
[2017-10-18] MEDS: RIVAROXABAN 15 MG TABLET PO SCH ×2 (08:58→16:48)
[2017-10-18] MEDS: TOPIRAMATE 25 MG TABLET PO SCH (08:58)
[2017-10-18] MEDS: CEFTRIAXONE 1,000 MG in DEXTROSE 5% 50 ML IV SCH (11:59)
[2017-10-18] MEDS: PANTOPRAZOLE 40 MG IV IVPush SCH ×2 (11:59→23:53)
[2017-10-18 13:39] VITALS: BP 102/68
[2017-10-18] MEDS: NYSTATIN 500,000 UNITS/5 ML UDC PO SCH (19:21)
[2017-10-18 20:05] VITALS: BP 108/76
[2017-10-19] MEDS: DOXYCYCLINE 100 MG in DEXTROSE 5% 250 ML IV SCH ×2 (00:32→12:31)
[2017-10-19 02:52] VITALS: BP 115/76
[2017-10-19] MEDS: LEVOTHYROXINE 100 MCG TABLET PO SCH (05:11)
[2017-10-19 07:15] VITALS: BP 109/78
[2017-10-19] MEDS: FUROSEMIDE 20 MG/2 ML IV SCH (08:11)
[2017-10-19] MEDS: POTASSIUM CHLORIDE 20 MEQ TAB.ER.PRT PO SCH ×2 (08:11→17:03)
[2017-10-19] MEDS: TOPIRAMATE 25 MG TABLET PO SCH (08:11)
[2017-10-19] MEDS: NYSTATIN 500,000 UNITS/5 ML UDC PO SCH ×2 (08:11→20:53)
[2017-10-19] MEDS: ONDANSETRON 2MG/ML, 2ML IVPush PRN (08:12)
[2017-10-19] MEDS: morphine SULFATE 10 MG/ML, 1ML IVPush PRN ×3 (08:12→20:53)
[2017-10-19] MEDS: RIVAROXABAN 15 MG TABLET PO SCH ×2 (08:12→17:03)
[2017-10-19 08:18] LABS: ANION GAP 11 mmol/L (5-15); CHLORIDE 104 mmol/L (98-107)
[2017-10-19 08:54] LABS: MD YES; MEAN CORPUSCULAR HEMOGLOBIN 31.6 pg (27.0-34.8); MEAN CORPUSCULAR HGB CONC 32.9 g/dL (32.4-35.8); MEAN CORPUSCULAR VOLUME 95.8 fL (80-100); MEAN PLATELET VOLUME 10.6 fL (7.4-10.4); PLATELET COUNT 121 x10^3/uL (130-400); RED BLOOD COUNT 3.38 x10^6/uL (3.82-5.3); RED CELL DISTRIBUTION WIDTH 23.1 % (9.6-15.2)
[2017-10-19 08:59] LABS: <PLATELET ESTIMATE> DECREASED; ANISOCYTOSIS 2+; BANDS%(MANUAL) 8 % (0-7); EOS#(MANUAL) 0.26 x10^3/uL (0.0-0.4); EOS% (MANUAL) 3 % (1-7); HOWELL-JOLLY BODIES 1+; LYMPH#(MANUAL) 0.53 x10^3/uL (1-3.4); LYMPHS% (MANUAL) 6 % (22-44); MONOS#(MANUAL) 0.97 x10^3/uL (0.3-2.7); MONOS% (MANUAL) 11 % (2-9); NRBC % (MANUAL) 1 % (0-1); OVALOCYTES 1+; POLYCHROMASIA 1+; SEG#(MANUAL) 6.34 x10^3/uL (1.8-6.8); SEGS% (MANUAL) 72 % (42-75); TARGET CELLS 1+
[2017-10-19 09:00] LABS: LARGE PLATELETS 1+
[2017-10-19] MEDS: PANTOPRAZOLE 40 MG IV IVPush SCH ×2 (11:18→23:37)
[2017-10-19] MEDS: FUROSEMIDE 20 MG TABLET PO SCH (11:18)
[2017-10-19] MEDS: CEFTRIAXONE 1,000 MG in DEXTROSE 5% 50 ML IV SCH (11:19)
[2017-10-19 13:35] VITALS: BP 108/75
[2017-10-19 20:29] VITALS: BP 112/78
[2017-10-19] MEDS: LORazepam 1MG TABLET PO PRN (20:53)
[2017-10-20] MEDS: DOXYCYCLINE 100 MG in DEXTROSE 5% 250 ML IV SCH (01:02)
[2017-10-20 02:44] VITALS: BP 111/74
[2017-10-20] MEDS: LEVOTHYROXINE 100 MCG TABLET PO SCH (05:14)
[2017-10-20 05:33] LABS: BASOPHILS % (AUTO) 0 % (0-1); EOSINOPHILS # (AUTO) 0.14 x10^3/uL (0-0.4); EOSINOPHILS % (AUTO) 2 % (1-7); LYMPHOCYTES # (AUTO) 0.67 x10^3/uL (1-3.4); LYMPHOCYTES % (AUTO) 8 % (22-44); MD NO; MEAN CORPUSCULAR HEMOGLOBIN 31.8 pg (27.0-34.8); MEAN CORPUSCULAR HGB CONC 33.1 g/dL (32.4-35.8); MEAN CORPUSCULAR VOLUME 96.2 fL (80-100); MONOCYTES # (AUTO) 0.83 x10^3/uL (0.2-0.8); MONOCYTES % (AUTO) 10 % (2-9); NEUTROPHILS # (AUTO) 6.96 x10^3/uL (1.8-6.8); NEUTROPHILS % (AUTO) 81 % (42-75); PLATELET COUNT 138 x10^3/uL (130-400); RED BLOOD COUNT 3.15 x10^6/uL (3.82-5.3); RED CELL DISTRIBUTION WIDTH 23.7 % (9.6-15.2)
[2017-10-20 07:54] VITALS: BP 110/82
[2017-10-20] MEDS ORDERED: FURO20TA3 PO (09:17)
[2017-10-20] MEDS: RIVAROXABAN 15 MG TABLET PO SCH ×2 (10:28→16:48)
[2017-10-20] MEDS: TOPIRAMATE 25 MG TABLET PO SCH (10:28)
[2017-10-20] MEDS: FUROSEMIDE 20 MG TABLET PO SCH (10:28)
[2017-10-20] MEDS: POTASSIUM CHLORIDE 20 MEQ TAB.ER.PRT PO SCH ×2 (10:28→16:48)
[2017-10-20] MEDS: NYSTATIN 500,000 UNITS/5 ML UDC PO SCH ×2 (10:28→20:37)
[2017-10-20] MEDS: HYDROcodone/APAP 5/325 TABLET PO PRN (10:35)
[2017-10-20] MEDS: PANTOPRAZOLE 40 MG IV IVPush SCH ×2 (11:30→23:26)
[2017-10-20] MEDS: morphine SULFATE 10 MG/ML, 1ML IVPush PRN ×2 (14:10→20:37)
[2017-10-20 14:14] VITALS: BP 105/73
[2017-10-20 19:55] VITALS: BP 104/73
[2017-10-20] MEDS: LORazepam 1MG TABLET PO PRN (20:37)
[2017-10-21 02:58] VITALS: BP 112/75
[2017-10-21] MEDS: LEVOTHYROXINE 100 MCG TABLET PO SCH (05:37)
[2017-10-21 07:42] VITALS: BP 109/79
[2017-10-21] MEDS: NYSTATIN 500,000 UNITS/5 ML UDC PO SCH ×2 (08:44→21:08)
[2017-10-21] MEDS: TOPIRAMATE 25 MG TABLET PO SCH (08:45)
[2017-10-21] MEDS: LORazepam 1MG TABLET PO PRN (08:45)
[2017-10-21] MEDS: RIVAROXABAN 15 MG TABLET PO SCH ×2 (08:45→17:38)
[2017-10-21] MEDS: POTASSIUM CHLORIDE 20 MEQ TAB.ER.PRT PO SCH ×2 (08:45→17:38)
[2017-10-21] MEDS: FUROSEMIDE 20 MG TABLET PO SCH (08:45)
[2017-10-21] MEDS: morphine SULFATE 10 MG/ML, 1ML IVPush PRN ×4 (08:58→21:08)
[2017-10-21] MEDS: PANTOPRAZOLE 40 MG IV IVPush SCH (12:01)
[2017-10-21 12:21] VITALS: BP 101/69
[2017-10-21 19:20] VITALS: BP 102/73
[2017-10-22] MEDS: PANTOPRAZOLE 40 MG IV IVPush SCH (00:34)
[2017-10-22] MEDS: morphine SULFATE 10 MG/ML, 1ML IVPush PRN ×6 (00:34→20:06)
[2017-10-22 02:51] VITALS: BP 108/75
[2017-10-22] MEDS: LEVOTHYROXINE 100 MCG TABLET PO SCH (06:16)
[2017-10-22 06:47] VITALS: BP 114/75
[2017-10-22] MEDS: RIVAROXABAN 15 MG TABLET PO SCH ×2 (07:32→17:51)
[2017-10-22] MEDS: POTASSIUM CHLORIDE 20 MEQ TAB.ER.PRT PO SCH ×2 (07:32→17:51)
[2017-10-22] MEDS ORDERED: ALBUTEROL/IPRATROPIUM 2.5MG/0.5MG, 3 ML NPPB PRN (09:30)
[2017-10-22] MEDS: FUROSEMIDE 20 MG TABLET PO SCH (10:24)
[2017-10-22] MEDS: TOPIRAMATE 25 MG TABLET PO SCH (10:24)
[2017-10-22] MEDS: NYSTATIN 500,000 UNITS/5 ML UDC PO SCH ×2 (10:24→20:06)
[2017-10-22] MEDS ORDERED: POTASSIUM CHLORIDE 20 MEQ TAB.ER.PRT PO ONE (11:00)
[2017-10-22 11:08] LABS: ANION GAP 11 mmol/L (5-15); CALCIUM 8.6 mg/dL (8.5-10.1); CHLORIDE 103 mmol/L (98-107); CREATININE 1.05 mg/dL (0.55-1.02)
[2017-10-22 13:05] VITALS: BP 108/79
[2017-10-22] MEDS: LORazepam 1MG TABLET PO PRN (15:34)
[2017-10-22] MEDS ORDERED: MAGNESIUM SULFATE PMX 2GM/50ML 50 ML IV ONE (17:00)
[2017-10-22 18:28] VITALS: BP 120/79
[2017-10-22] MEDS ORDERED: MORPHINE SULFATE 4 MG/ML, 1ML ONE (20:04)
[2017-10-22] MEDS: MAGNESIUM CHLORIDE 64 MG TABLET.DR PO SCH (20:06)
[2017-10-22] MEDS: PANTOPROZOLE 40MG TABLET PO SCH (20:06)
[2017-10-23 02:26] VITALS: BP 118/76
[2017-10-23] MEDS: LEVOTHYROXINE 100 MCG TABLET PO SCH (05:14)
[2017-10-23] MEDS: morphine SULFATE 10 MG/ML, 1ML IVPush PRN ×6 (06:15→22:56)
[2017-10-23 06:30] VITALS: BP 112/69
[2017-10-23] MEDS: ONDANSETRON 2MG/ML, 2ML IVPush PRN ×2 (06:34→12:31)
[2017-10-23] MEDS: RIVAROXABAN 15 MG TABLET PO SCH ×2 (08:33→17:13)
[2017-10-23] MEDS: POTASSIUM CHLORIDE 20 MEQ TAB.ER.PRT PO SCH ×2 (08:33→17:13)
[2017-10-23] MEDS: NYSTATIN 500,000 UNITS/5 ML UDC PO SCH ×2 (09:25→19:53)
[2017-10-23] MEDS: MAGNESIUM CHLORIDE 64 MG TABLET.DR PO SCH ×2 (09:25→19:53)
[2017-10-23] MEDS: TOPIRAMATE 25 MG TABLET PO SCH (09:25)
[2017-10-23] MEDS: PANTOPROZOLE 40MG TABLET PO SCH ×2 (09:25→19:53)
[2017-10-23] MEDS: FUROSEMIDE 20 MG TABLET PO SCH (09:27)
[2017-10-23] MEDS ORDERED: MORPHINE SULFATE 4 MG/ML, 1ML ONE ×4 (12:26→22:54)
[2017-10-23 14:14] VITALS: BP 100/70
[2017-10-23 19:29] VITALS: BP 112/75
[2017-10-23] MEDS: LORazepam 1MG TABLET PO PRN (19:52)
[2017-10-24 00:28] VITALS: BP 112/74
[2017-10-24] MEDS ORDERED: MORPHINE SULFATE 4 MG/ML, 1ML ONE (05:34)
[2017-10-24] MEDS: LEVOTHYROXINE 100 MCG TABLET PO SCH (05:37)
[2017-10-24] MEDS: morphine SULFATE 10 MG/ML, 1ML IVPush PRN ×5 (05:38→22:35)
[2017-10-24] MEDS: ONDANSETRON 2MG/ML, 2ML IVPush PRN ×3 (05:38→21:45)
[2017-10-24 06:56] VITALS: BP 108/71
[2017-10-24] MEDS: POTASSIUM CHLORIDE 20 MEQ TAB.ER.PRT PO SCH ×2 (07:59→17:43)
[2017-10-24] MEDS: RIVAROXABAN 15 MG TABLET PO SCH ×2 (07:59→17:43)
[2017-10-24] MEDS: TOPIRAMATE 25 MG TABLET PO SCH (08:00)
[2017-10-24] MEDS: MAGNESIUM CHLORIDE 64 MG TABLET.DR PO SCH ×2 (08:01→22:28)
[2017-10-24] MEDS: FUROSEMIDE 20 MG TABLET PO SCH (08:01)
[2017-10-24] MEDS: PANTOPROZOLE 40MG TABLET PO SCH ×2 (08:01→21:45)
[2017-10-24] MEDS: NYSTATIN 500,000 UNITS/5 ML UDC PO SCH ×2 (08:02→21:45)
[2017-10-24] MEDS: LORazepam 1MG TABLET PO PRN ×2 (10:08→22:35)
[2017-10-24 13:40] VITALS: BP 110/77
[2017-10-24 19:08] VITALS: BP 103/74
[2017-10-25 00:36] VITALS: BP 108/72
[2017-10-25] MEDS: LEVOTHYROXINE 100 MCG TABLET PO SCH (05:26)
[2017-10-25] MEDS: morphine SULFATE 10 MG/ML, 1ML IVPush PRN ×4 (07:27→19:30)
[2017-10-25] MEDS: RIVAROXABAN 15 MG TABLET PO SCH ×2 (07:27→16:54)
[2017-10-25] MEDS: TOPIRAMATE 25 MG TABLET PO SCH (07:27)
[2017-10-25] MEDS: POTASSIUM CHLORIDE 20 MEQ TAB.ER.PRT PO SCH (07:27)
[2017-10-25] MEDS: ONDANSETRON 2MG/ML, 2ML IVPush PRN ×2 (07:27→14:43)
[2017-10-25] MEDS: PANTOPROZOLE 40MG TABLET PO SCH ×2 (07:28→21:43)
[2017-10-25] MEDS: NYSTATIN 500,000 UNITS/5 ML UDC PO SCH ×2 (07:28→21:43)
[2017-10-25] MEDS: MAGNESIUM CHLORIDE 64 MG TABLET.DR PO SCH ×2 (07:28→21:43)
[2017-10-25] MEDS: FUROSEMIDE 20 MG TABLET PO SCH (07:28)
[2017-10-25 08:36] VITALS: BP 106/67
[2017-10-25] MEDS: LORazepam 1MG TABLET PO PRN (11:35)
[2017-10-25 14:24] VITALS: BP 100/71
[2017-10-25] MEDS: POTASSIUM CHLORIDE 10% 20 MEQ/15 ML UDC PO SCH (16:54)
[2017-10-25 19:21] VITALS: BP 110/72
[2017-10-25] MEDS: GUAIFENESIN/DM 200-20MG, 10ML UDC PO PRN (19:35)
[2017-10-26 02:37] VITALS: BP 123/82
[2017-10-26] MEDS: GUAIFENESIN/DM 200-20MG, 10ML UDC PO PRN ×3 (02:58→17:57)
[2017-10-26] MEDS: morphine SULFATE 10 MG/ML, 1ML IVPush PRN ×3 (04:42→17:53)
[2017-10-26] MEDS: LEVOTHYROXINE 100 MCG TABLET PO SCH (06:13)
[2017-10-26 06:45] VITALS: BP 117/77
[2017-10-26] MEDS: FUROSEMIDE 20 MG TABLET PO SCH (09:03)
[2017-10-26] MEDS: TOPIRAMATE 25 MG TABLET PO SCH (09:03)
[2017-10-26] MEDS: MAGNESIUM CHLORIDE 64 MG TABLET.DR PO SCH ×2 (09:04→21:29)
[2017-10-26] MEDS: PANTOPROZOLE 40MG TABLET PO SCH ×2 (09:04→21:29)
[2017-10-26] MEDS: POTASSIUM CHLORIDE 10% 20 MEQ/15 ML UDC PO SCH ×2 (09:04→17:53)
[2017-10-26] MEDS: NYSTATIN 500,000 UNITS/5 ML UDC PO SCH ×2 (09:04→21:29)
[2017-10-26] MEDS: RIVAROXABAN 15 MG TABLET PO SCH ×2 (09:04→17:53)
[2017-10-26] MEDS: HYDROcodone/APAP 5/325 TABLET PO PRN (12:38)
[2017-10-26 13:20] VITALS: BP 111/73
[2017-10-26] MEDS ORDERED: ALBUTEROL/IPRATROPIUM 2.5MG/0.5MG, 3 ML ONE (17:02)
[2017-10-26] MEDS: ALBUTEROL/IPRATROPIUM 2.5MG/0.5MG, 3 ML NPPB PRN (17:10)
[2017-10-26 19:05] VITALS: BP 107/73
[2017-10-26] MEDS: LORazepam 1MG TABLET PO PRN (19:53)
[2017-10-27 03:54] VITALS: BP 118/80
[2017-10-27] MEDS: LEVOTHYROXINE 100 MCG TABLET PO SCH (05:51)
[2017-10-27 07:25] VITALS: BP 118/79
[2017-10-27] MEDS: HYDROcodone/APAP 5/325 TABLET PO PRN ×2 (08:46→17:47)
[2017-10-27] MEDS: POTASSIUM CHLORIDE 10% 20 MEQ/15 ML UDC PO SCH ×2 (08:47→17:47)
[2017-10-27] MEDS: TOPIRAMATE 25 MG TABLET PO SCH (08:47)
[2017-10-27] MEDS: FUROSEMIDE 20 MG TABLET PO SCH (08:47)
[2017-10-27] MEDS: NYSTATIN 500,000 UNITS/5 ML UDC PO SCH ×2 (08:47→20:33)
[2017-10-27] MEDS: PANTOPROZOLE 40MG TABLET PO SCH ×2 (08:47→20:33)
[2017-10-27] MEDS: RIVAROXABAN 15 MG TABLET PO SCH ×2 (08:47→17:47)
[2017-10-27] MEDS: MAGNESIUM CHLORIDE 64 MG TABLET.DR PO SCH ×2 (08:48→20:33)
[2017-10-27] MEDS: GUAIFENESIN/DM 200-20MG, 10ML UDC PO PRN ×2 (08:52→15:00)
[2017-10-27] MEDS: morphine SULFATE 10 MG/ML, 1ML IVPush PRN ×4 (09:58→23:51)
[2017-10-27] MEDS: ONDANSETRON 2MG/ML, 2ML IVPush PRN ×2 (09:59→15:43)
[2017-10-27] MEDS: ALBUTEROL/IPRATROPIUM 2.5MG/0.5MG, 3 ML NPPB PRN (10:14)
[2017-10-27 15:00] VITALS: BP 109/69
[2017-10-27] MEDS: LORazepam 1MG TABLET PO PRN ×2 (15:00→23:07)
[2017-10-27 21:36] VITALS: BP 103/68
[2017-10-28 00:32] VITALS: BP 121/83
[2017-10-28] MEDS: ONDANSETRON 2MG/ML, 2ML IVPush PRN ×3 (00:35→22:47)
[2017-10-28 05:06] LABS: MEAN CORPUSCULAR HEMOGLOBIN 31.2 pg (27.0-34.8); MEAN CORPUSCULAR HGB CONC 32.7 g/dL (32.4-35.8); MEAN CORPUSCULAR VOLUME 95.4 fL (80-100); MEAN PLATELET VOLUME 8.3 fL (7.4-10.4); PLATELET COUNT 250 x10^3/uL (130-400); RED BLOOD COUNT 3.03 x10^6/uL (3.82-5.3); RED CELL DISTRIBUTION WIDTH 23.5 % (9.6-15.2)
[2017-10-28] MEDS: LEVOTHYROXINE 100 MCG TABLET PO SCH (05:19)
[2017-10-28] MEDS: HYDROcodone/APAP 5/325 TABLET PO PRN (05:19)
[2017-10-28 05:20] LABS: ANION GAP 8 mmol/L (5-15); CALCIUM 8.2 mg/dL (8.5-10.1); CHLORIDE 102 mmol/L (98-107)
[2017-10-28 05:22] LABS: CREATININE 1.02 mg/dL (0.55-1.02)
[2017-10-28 05:37] LABS: MD YES
[2017-10-28 05:39] LABS: BAND#(MANUAL) 0.56 x10^3/uL; BANDS%(MANUAL) 3 % (0-7); METAMYELOCYTES# (MANUAL) 0.19 x10^3/uL (0-0); METAMYELOCYTES% (MANUAL) 1 % (0-1); NRBC % (MANUAL) 4 % (0-1)
[2017-10-28 05:40] LABS: LYMPH#(MANUAL) 0.56 x10^3/uL (1-3.4); LYMPHS% (MANUAL) 3 % (22-44); MONOS#(MANUAL) 1.48 x10^3/uL (0.3-2.7); MONOS% (MANUAL) 8 % (2-9); SEG#(MANUAL) 15.73 x10^3/uL (1.8-6.8); SEGS% (MANUAL) 85 % (42-75)
[2017-10-28 05:41] LABS: ANISOCYTOSIS 2+; HOWELL-JOLLY BODIES 1+; POLYCHROMASIA 1+; TARGET CELLS 1+
[2017-10-28 05:42] LABS: MICROCYTOSIS 1+; OVALOCYTES 1+
[2017-10-28 05:43] LABS: <PLATELET ESTIMATE> ADEQUATE; <PLT MORPHOLOGY> NORMAL PLT MORPH
[2017-10-28 07:44] VITALS: BP 106/71
[2017-10-28] MEDS: morphine SULFATE 10 MG/ML, 1ML IVPush PRN ×4 (08:20→22:47)
[2017-10-28] MEDS: PANTOPROZOLE 40MG TABLET PO SCH ×2 (08:20→22:16)
[2017-10-28] MEDS: MAGNESIUM CHLORIDE 64 MG TABLET.DR PO SCH ×2 (08:20→22:16)
[2017-10-28] MEDS: NYSTATIN 500,000 UNITS/5 ML UDC PO SCH ×2 (08:20→22:16)
[2017-10-28] MEDS: POTASSIUM CHLORIDE 10% 20 MEQ/15 ML UDC PO SCH ×2 (08:20→17:07)
[2017-10-28] MEDS: TOPIRAMATE 25 MG TABLET PO SCH (08:21)
[2017-10-28] MEDS: FUROSEMIDE 20 MG TABLET PO SCH (08:21)
[2017-10-28] MEDS: RIVAROXABAN 15 MG TABLET PO SCH ×2 (08:21→17:07)
[2017-10-28] MEDS ORDERED: CATHFLO-ALTEPLASE 2 MG/2 ML CATHFLUSH ONE (08:30)
[2017-10-28] MEDS: ALBUTEROL/IPRATROPIUM 2.5MG/0.5MG, 3 ML NPPB PRN (13:40)
[2017-10-28 14:15] VITALS: BP 132/75
[2017-10-28] MEDS ORDERED: FUROSEMIDE 40 MG/4 ML IV ONE (14:30)
[2017-10-28] MEDS ORDERED: VANCOMYCIN PER PHARMACY MC PRN (15:00)
[2017-10-28] MEDS ORDERED: PHARMACOKINETIC CONSULTATION MC ONE (15:30)
[2017-10-28] MEDS: LORazepam 1MG TABLET PO PRN (15:41)
[2017-10-28] MEDS: VANCOMYCIN 1,400 MG in SODIUM CHLORIDE 0.9% 250 ML IV SCH (17:12)
[2017-10-28 18:29] LABS: MICROSCOPIC INDICATED
[2017-10-28 18:40] LABS: CULTURE INDICATED? NO
[2017-10-28] MEDS: PIPERACILLIN/TAZO/PMX 3.375GM 50 ML IV SCH (19:38)
[2017-10-28 19:40] VITALS: BP 111/77
[2017-10-28 23:30] VITALS: BP 108/74
[2017-10-29 00:07] VITALS: BP 108/74
[2017-10-29] MEDS ORDERED: SODIUM CHLORIDE 0.9% 1,000ML IVBOLUS ONE (00:30)
[2017-10-29 04:18] VITALS: BP 137/88
[2017-10-29] MEDS: PIPERACILLIN/TAZO/PMX 3.375GM 50 ML IV SCH ×3 (04:24→18:29)
[2017-10-29] MEDS: morphine SULFATE 10 MG/ML, 1ML IVPush PRN ×6 (04:24→21:20)
[2017-10-29] MEDS: LEVOTHYROXINE 100 MCG TABLET PO SCH (06:05)
[2017-10-29 07:09] VITALS: BP 109/76
[2017-10-29 08:15] LABS: ANION GAP 10 mmol/L (5-15); CALCIUM 8.3 mg/dL (8.5-10.1); CHLORIDE 101 mmol/L (98-107); CREATININE 1.22 mg/dL (0.55-1.02)
[2017-10-29 08:33] LABS: MEAN CORPUSCULAR HGB CONC 32.5 g/dL (32.4-35.8); MEAN CORPUSCULAR VOLUME 95.3 fL (80-100); MEAN PLATELET VOLUME 7.8 fL (7.4-10.4); PLATELET COUNT 257 x10^3/uL (130-400); RED BLOOD COUNT 3.16 x10^6/uL (3.82-5.3)
[2017-10-29] MEDS: ONDANSETRON 2MG/ML, 2ML IVPush PRN ×3 (08:46→21:08)
[2017-10-29] MEDS: LORazepam 1MG TABLET PO PRN ×3 (08:46→21:08)
[2017-10-29] MEDS: RIVAROXABAN 15 MG TABLET PO SCH ×2 (08:47→17:56)
[2017-10-29] MEDS: POTASSIUM CHLORIDE 10% 20 MEQ/15 ML UDC PO SCH ×2 (08:47→18:29)
[2017-10-29] MEDS: PANTOPROZOLE 40MG TABLET PO SCH ×2 (08:47→21:09)
[2017-10-29] MEDS: FUROSEMIDE 20 MG TABLET PO SCH ×2 (08:47→21:08)
[2017-10-29] MEDS: MAGNESIUM CHLORIDE 64 MG TABLET.DR PO SCH ×2 (08:47→21:09)
[2017-10-29] MEDS: TOPIRAMATE 25 MG TABLET PO SCH (08:47)
[2017-10-29] MEDS: NYSTATIN 500,000 UNITS/5 ML UDC PO SCH ×2 (08:48→21:09)
[2017-10-29 09:02] LABS: MD YES
[2017-10-29 09:06] LABS: BAND#(MANUAL) 0.41 x10^3/uL; BANDS%(MANUAL) 2 % (0-7); LYMPH#(MANUAL) 0.41 x10^3/uL (1-3.4); LYMPHS% (MANUAL) 2 % (22-44); MONOS#(MANUAL) 1.42 x10^3/uL (0.3-2.7); MONOS% (MANUAL) 7 % (2-9); NRBC % (MANUAL) 7 % (0-1); SEG#(MANUAL) 18.07 x10^3/uL (1.8-6.8); SEGS% (MANUAL) 89 % (42-75)
[2017-10-29 09:07] LABS: ANISOCYTOSIS 2+; POLYCHROMASIA 2+; TARGET CELLS 1+
[2017-10-29 09:08] LABS: <PLATELET ESTIMATE> ADEQUATE; <PLT MORPHOLOGY> NORMAL PLT MORPH
[2017-10-29] MEDS: ALBUTEROL/IPRATROPIUM 2.5MG/0.5MG, 3 ML NPPB PRN (09:40)
[2017-10-29 14:30] VITALS: BP 105/72
[2017-10-29] MEDS: VANCOMYCIN 1,400 MG in SODIUM CHLORIDE 0.9% 250 ML IV SCH (16:59)
[2017-10-29 19:12] VITALS: BP 112/77
[2017-10-30] MEDS: PIPERACILLIN/TAZO/PMX 3.375GM 50 ML IV SCH ×4 (00:25→17:17)
[2017-10-30] MEDS: morphine SULFATE 10 MG/ML, 1ML IVPush PRN ×3 (00:42→08:14)
[2017-10-30 01:24] VITALS: BP 128/84
[2017-10-30] MEDS: ONDANSETRON 2MG/ML, 2ML IVPush PRN ×2 (05:11→11:43)
[2017-10-30] MEDS: LORazepam 1MG TABLET PO PRN ×3 (05:11→18:02)
[2017-10-30 05:26] LABS: MEAN CORPUSCULAR HEMOGLOBIN 30.7 pg (27.0-34.8); MEAN CORPUSCULAR HGB CONC 32.1 g/dL (32.4-35.8); MEAN CORPUSCULAR VOLUME 95.6 fL (80-100); MEAN PLATELET VOLUME 8.3 fL (7.4-10.4); PLATELET COUNT 247 x10^3/uL (130-400); RED CELL DISTRIBUTION WIDTH 23.4 % (9.6-15.2)
[2017-10-30 05:46] LABS: MD YES
[2017-10-30] MEDS: LEVOTHYROXINE 100 MCG TABLET PO SCH (05:46)
[2017-10-30 05:48] LABS: ANION GAP 12 mmol/L (5-15); ANISOCYTOSIS 2+; BANDS%(MANUAL) 4 % (0-7); CALCIUM 8.3 mg/dL (8.5-10.1); CHLORIDE 103 mmol/L (98-107); CREATININE 1.19 mg/dL (0.55-1.02); MONOS#(MANUAL) 2.99 x10^3/uL (0.3-2.7); MONOS% (MANUAL) 12 % (2-9); NRBC % (MANUAL) 6 % (0-1); POLYCHROMASIA 1+; SEG#(MANUAL) 20.92 x10^3/uL (1.8-6.8); SEGS% (MANUAL) 84 % (42-75)
[2017-10-30 05:49] LABS: <PLATELET ESTIMATE> ADEQUATE; <PLT MORPHOLOGY> NORMAL PLT MORPH; HOWELL-JOLLY BODIES 1+
[2017-10-30 05:51] LABS: MICROCYTOSIS 1+
[2017-10-30 05:52] LABS: TARGET CELLS 1+
[2017-10-30 07:06] VITALS: BP 107/74
[2017-10-30] MEDS: POTASSIUM CHLORIDE 10% 20 MEQ/15 ML UDC PO SCH ×2 (08:13→17:17)
[2017-10-30] MEDS: MAGNESIUM CHLORIDE 64 MG TABLET.DR PO SCH ×2 (08:13→20:45)
[2017-10-30] MEDS: NYSTATIN 500,000 UNITS/5 ML UDC PO SCH ×2 (08:13→20:37)
[2017-10-30] MEDS: TOPIRAMATE 25 MG TABLET PO SCH (08:13)
[2017-10-30] MEDS: FUROSEMIDE 20 MG TABLET PO SCH ×2 (08:14→20:37)
[2017-10-30] MEDS: PANTOPROZOLE 40MG TABLET PO SCH ×2 (08:14→20:37)
[2017-10-30] MEDS: RIVAROXABAN 15 MG TABLET PO SCH ×2 (08:14→17:17)
[2017-10-30] MEDS: HYDROcodone/APAP 5/325 TABLET PO PRN (11:42)
[2017-10-30 13:15] VITALS: BP 112/77
[2017-10-30] MEDS ORDERED: morphine SULFATE 10 MG/ML, 1ML ONE (13:23)
[2017-10-30] MEDS: MORPHINE SULFATE 4 MG/ML, 1ML IVPush PRN ×2 (13:26→20:45)
[2017-10-30] MEDS: VANCOMYCIN 1,400 MG in SODIUM CHLORIDE 0.9% 250 ML IV SCH (17:07)
[2017-10-30 20:15] VITALS: BP 112/72
[2017-10-31 00:40] VITALS: BP 100/69
[2017-10-31] MEDS: MORPHINE SULFATE 4 MG/ML, 1ML IVPush PRN ×4 (00:47→21:06)
[2017-10-31] MEDS: PIPERACILLIN/TAZO/PMX 3.375GM 50 ML IV SCH ×2 (00:49→06:29)
[2017-10-31] MEDS ORDERED: VANCOMYCIN 1,400 MG in SODIUM CHLORIDE 0.9% 250 ML IV SCH (05:00)
[2017-10-31] MEDS: LEVOTHYROXINE 100 MCG TABLET PO SCH (06:27)
[2017-10-31 06:30] VITALS: BP 103/68
[2017-10-31 08:35] LABS: MEAN CORPUSCULAR HEMOGLOBIN 30.7 pg (27.0-34.8); MEAN CORPUSCULAR HGB CONC 32.4 g/dL (32.4-35.8); MEAN CORPUSCULAR VOLUME 94.6 fL (80-100); MEAN PLATELET VOLUME 8.3 fL (7.4-10.4); PLATELET COUNT 217 x10^3/uL (130-400); RED BLOOD COUNT 3.43 x10^6/uL (3.82-5.3); RED CELL DISTRIBUTION WIDTH 22.8 % (9.6-15.2)
[2017-10-31] MEDS: HYDROcodone/APAP 5/325 TABLET PO PRN (08:39)
[2017-10-31] MEDS: NYSTATIN 500,000 UNITS/5 ML UDC PO SCH ×2 (08:40→21:08)
[2017-10-31] MEDS: RIVAROXABAN 15 MG TABLET PO SCH (08:40)
[2017-10-31] MEDS: PANTOPROZOLE 40MG TABLET PO SCH (08:40)
[2017-10-31] MEDS: MAGNESIUM CHLORIDE 64 MG TABLET.DR PO SCH ×2 (08:40→20:59)
[2017-10-31] MEDS: TOPIRAMATE 25 MG TABLET PO SCH (08:40)
[2017-10-31] MEDS: FUROSEMIDE 20 MG TABLET PO SCH (08:40)
[2017-10-31] MEDS: POTASSIUM CHLORIDE 10% 20 MEQ/15 ML UDC PO SCH (08:41)
[2017-10-31 08:44] LABS: ANION GAP 14 mmol/L (5-15); CALCIUM 8.5 mg/dL (8.5-10.1); CHLORIDE 101 mmol/L (98-107); CREATININE 1.22 mg/dL (0.55-1.02)
[2017-10-31] MEDS ORDERED: morphine SULFATE 10 MG/ML, 1ML ONE (09:33)
[2017-10-31] MEDS: POTASSIUM CHLORIDE 20 MEQ TAB.ER.PRT PO SCH ×2 (09:40→20:59)
[2017-10-31] MEDS: ONDANSETRON 2MG/ML, 2ML IVPush PRN ×2 (09:40→17:05)
[2017-10-31 09:47] LABS: MD YES
[2017-10-31 09:52] LABS: ANISOCYTOSIS 2+; LYMPH#(MANUAL) 0.49 x10^3/uL (1-3.4); LYMPHS% (MANUAL) 2 % (22-44); MICROCYTOSIS 1+; MONOS#(MANUAL) 0.99 x10^3/uL (0.3-2.7); MONOS% (MANUAL) 4 % (2-9); NRBC % (MANUAL) 6 % (0-1); SEG#(MANUAL) 23.22 x10^3/uL (1.8-6.8); SEGS% (MANUAL) 94 % (42-75)
[2017-10-31 09:56] LABS: <PLATELET ESTIMATE> ADEQUATE; <PLT MORPHOLOGY> NORMAL PLT MORPH; HOWELL-JOLLY BODIES 2+; TARGET CELLS 1+
[2017-10-31 13:59] VITALS: BP 110/75
[2017-10-31] MEDS: ALBUMIN HUMAN 25% 50 ML IV SCH (16:49)
[2017-10-31] MEDS: FUROSEMIDE 20 MG/2 ML IV SCH (16:52)
[2017-10-31] MEDS ORDERED: POTASSIUM CHLORIDE 40 MEQ in SODIUM CHLORIDE 0.9% 100 ML IV ONE (17:30)
[2017-10-31 18:36] VITALS: BP 120/83
[2017-10-31] MEDS: PANTOPRAZOLE 40 MG IV IVPush SCH (21:42)
[2017-11-01 02:07] VITALS: BP 120/83
[2017-11-01] MEDS: ALBUMIN HUMAN 25% 50 ML IV SCH ×2 (03:47→16:01)
[2017-11-01] MEDS: LEVOTHYROXINE 100 MCG INJ IVPush SCH (05:42)
[2017-11-01] MEDS: ONDANSETRON 2MG/ML, 2ML IVPush PRN ×3 (05:50→22:20)
[2017-11-01] MEDS: MORPHINE SULFATE 4 MG/ML, 1ML IVPush PRN ×3 (05:50→20:48)
[2017-11-01 06:13] LABS: ANION GAP 12 mmol/L (5-15); CALCIUM 8.2 mg/dL (8.5-10.1); CHLORIDE 102 mmol/L (98-107); CREATININE 1.16 mg/dL (0.55-1.02)
[2017-11-01 07:23] VITALS: BP 114/74
[2017-11-01] MEDS ORDERED: POTASSIUM CHLORIDE 40 MEQ in SODIUM CHLORIDE 0.9% 500 ML IV ONE (07:30)
[2017-11-01] MEDS: MAGNESIUM CHLORIDE 64 MG TABLET.DR PO SCH ×2 (09:09→20:28)
[2017-11-01] MEDS: TOPIRAMATE 25 MG TABLET PO SCH (10:19)
[2017-11-01] MEDS: FUROSEMIDE 20 MG/2 ML IV SCH ×2 (10:35→17:36)
[2017-11-01] MEDS: PANTOPRAZOLE 40 MG IV IVPush SCH ×2 (10:35→20:48)
[2017-11-01] MEDS: NYSTATIN 500,000 UNITS/5 ML UDC PO SCH ×2 (10:36→20:49)
[2017-11-01] MEDS: ENOXAPARIN 80 MG/0.8 ML SQ SCH (13:04)
[2017-11-01 13:06] VITALS: BP 120/81
[2017-11-01] MEDS ORDERED: CATHFLO-ALTEPLASE 2 MG/2 ML CATHFLUSH ONE (19:00)
[2017-11-01 20:26] VITALS: BP 118/79
[2017-11-01] MEDS ORDERED: ONDANSETRON 2MG/ML, 2ML ONE (22:17)
[2017-11-02] MEDS: MORPHINE SULFATE 4 MG/ML, 1ML IVPush PRN ×5 (01:15→23:36)
[2017-11-02] MEDS: ENOXAPARIN 80 MG/0.8 ML SQ SCH ×2 (01:16→12:43)
[2017-11-02 01:21] VITALS: BP 114/75
[2017-11-02] MEDS: ALBUMIN HUMAN 25% 50 ML IV SCH ×2 (03:13→14:38)
[2017-11-02] MEDS: ONDANSETRON 2MG/ML, 2ML IVPush PRN ×4 (03:13→23:36)
[2017-11-02] MEDS: LEVOTHYROXINE 100 MCG INJ IVPush SCH (06:07)
[2017-11-02 06:53] VITALS: BP 104/75
[2017-11-02] MEDS: TOPIRAMATE 25 MG TABLET PO SCH (07:55)
[2017-11-02] MEDS: MAGNESIUM CHLORIDE 64 MG TABLET.DR PO SCH (07:55)
[2017-11-02] MEDS: NYSTATIN 500,000 UNITS/5 ML UDC PO SCH ×2 (08:05→22:10)
[2017-11-02] MEDS: FUROSEMIDE 20 MG/2 ML IV SCH (08:05)
[2017-11-02] MEDS: PANTOPRAZOLE 40 MG IV IVPush SCH ×2 (08:05→20:48)
[2017-11-02 08:11] LABS: MEAN CORPUSCULAR HEMOGLOBIN 31.2 pg (27.0-34.8); MEAN CORPUSCULAR HGB CONC 32.7 g/dL (32.4-35.8); MEAN CORPUSCULAR VOLUME 95.3 fL (80-100); MEAN PLATELET VOLUME 8.1 fL (7.4-10.4); PLATELET COUNT 223 x10^3/uL (130-400); RED BLOOD COUNT 2.73 x10^6/uL (3.82-5.3); RED CELL DISTRIBUTION WIDTH 23.9 % (9.6-15.2)
[2017-11-02 08:18] LABS: ALBUMIN 2.2 g/dL (3.4-5.0); ANION GAP 12 mmol/L (5-15); CALCIUM 8.1 mg/dL (8.5-10.1); CHLORIDE 103 mmol/L (98-107); CREATININE 1.21 mg/dL (0.55-1.02)
[2017-11-02 08:22] VITALS: BP 108/77
[2017-11-02 08:51] LABS: MD YES
[2017-11-02 08:53] LABS: <PLATELET ESTIMATE> ADEQUATE; <PLT MORPHOLOGY> NORMAL PLT MORPH; ANISOCYTOSIS 2+; HYPOCHROMIA 2+; LYMPH#(MANUAL) 1.13 x10^3/uL (1-3.4); LYMPHS% (MANUAL) 6 % (22-44); MICROCYTOSIS 1+; MONOS#(MANUAL) 2.07 x10^3/uL (0.3-2.7); MONOS% (MANUAL) 11 % (2-9); MYELOCYTES# (MANUAL) 0.38 x10^3/uL (0-0); MYELOCYTES% (MANUAL) 2 % (0-0); NRBC % (MANUAL) 2 % (0-1); SEG#(MANUAL) 15.23 x10^3/uL (1.8-6.8); SEGS% (MANUAL) 81 % (42-75); TARGET CELLS 1+
[2017-11-02] MEDS ORDERED: POTASSIUM CHLORIDE 40 MEQ in SODIUM CHLORIDE 0.9% 500 ML IV ONE (09:00)
[2017-11-02] MEDS ORDERED: FILTER 0.22 MICRON FOR AMIODARONE IV PRN (09:00)
[2017-11-02] MEDS ORDERED: AMIODARONE 150 MG in DEXTROSE 5% 100 ML IV ONE (09:00)
[2017-11-02] MEDS ORDERED: AMIODARONE 900 MG in DEXTROSE 5% 482 ML IV PRN (09:00)
[2017-11-02 09:18] VITALS: BP 113/73
[2017-11-02] MEDS: LORazepam 2 MG/ML, 1ML IVPush PRN (09:52)
[2017-11-02 10:04] LABS: TROPONIN I 0.159 ng/mL (0.000-0.045)
[2017-11-02] MEDS ORDERED: FUROSEMIDE 20 MG/2 ML IV SCH ×3 (11:30→21:00)
[2017-11-02] MEDS: ALBUMIN HUMAN 25% 100 ML IV SCH ×3 (12:01→23:36)
[2017-11-02] MEDS ORDERED: POTASSIUM CHLORIDE 10% 40 MEQ/30 ML UDC PO ONE ×3 (12:30→17:00)
[2017-11-02 14:21] VITALS: BP 122/79
[2017-11-02] MEDS: PHENOL THROAT SPRAY BOTTLE MM PRN (18:28)
[2017-11-02] MEDS ORDERED: SODIUM PHOSPHATE 20 MMOL in SODIUM CHLORIDE 0.9% 500 ML IV ONE (18:30)
[2017-11-02] MEDS ORDERED: SODIUM CHLORIDE 0.9% IV ONE (18:30)
[2017-11-02] MEDS ORDERED: SODIUM PHOSPHATE IV ONE (18:30)
[2017-11-02] MEDS ORDERED: SODIUM PHOSPHATE 4 MEQ/ML IV SCH (18:30)
[2017-11-02 18:59] VITALS: BP 114/78
[2017-11-02 20:02] LABS: ANION GAP 8 mmol/L (5-15); CALCIUM 8.8 mg/dL (8.5-10.1); CHLORIDE 107 mmol/L (98-107); CREATININE 1.21 mg/dL (0.55-1.02)
[2017-11-02 22:21] LABS: CLOSTRIDIUM DIFFICILE ANTIGEN NEGATIVE; CLOSTRIDIUM DIFFICILE TOXIN NEGATIVE (Negative)
[2017-11-03 01:18] VITALS: BP 118/76
[2017-11-03] MEDS: FUROSEMIDE 20 MG/2 ML IV SCH ×4 (01:28→22:22)
[2017-11-03] MEDS: ENOXAPARIN 80 MG/0.8 ML SQ SCH ×2 (01:28→14:00)
[2017-11-03] MEDS: PHENOL THROAT SPRAY BOTTLE MM PRN ×3 (03:43→22:22)
[2017-11-03] MEDS: ONDANSETRON 2MG/ML, 2ML IVPush PRN ×4 (03:47→22:24)
[2017-11-03] MEDS: MORPHINE SULFATE 4 MG/ML, 1ML IVPush PRN ×6 (03:47→22:24)
[2017-11-03 05:20] LABS: MEAN CORPUSCULAR HEMOGLOBIN 30.9 pg (27.0-34.8); MEAN CORPUSCULAR HGB CONC 32.1 g/dL (32.4-35.8); MEAN CORPUSCULAR VOLUME 96.4 fL (80-100); PLATELET COUNT 202 x10^3/uL (130-400); RED BLOOD COUNT 2.53 x10^6/uL (3.82-5.3); RED CELL DISTRIBUTION WIDTH 23.8 % (9.6-15.2)
[2017-11-03] MEDS: ALBUMIN HUMAN 25% 100 ML IV SCH ×3 (05:21→20:30)
[2017-11-03 05:30] LABS: ALBUMIN 3.5 g/dL (3.4-5.0); ANION GAP 10 mmol/L (5-15); CALCIUM 8.4 mg/dL (8.5-10.1); CHLORIDE 107 mmol/L (98-107); CREATININE 1.14 mg/dL (0.55-1.02)
[2017-11-03] MEDS: LEVOTHYROXINE 100 MCG INJ IVPush SCH (05:31)
[2017-11-03 05:47] LABS: MD YES
[2017-11-03 05:49] LABS: LYMPH#(MANUAL) 0.39 x10^3/uL (1-3.4); LYMPHS% (MANUAL) 2 % (22-44); METAMYELOCYTES# (MANUAL) 0.19 x10^3/uL (0-0); METAMYELOCYTES% (MANUAL) 1 % (0-1); MONOS#(MANUAL) 0.97 x10^3/uL (0.3-2.7); MONOS% (MANUAL) 5 % (2-9); MYELOCYTES# (MANUAL) 0.19 x10^3/uL (0-0); MYELOCYTES% (MANUAL) 1 % (0-0); NRBC % (MANUAL) 4 % (0-1); SEG#(MANUAL) 17.56 x10^3/uL (1.8-6.8); SEGS% (MANUAL) 91 % (42-75)
[2017-11-03 05:50] LABS: ANISOCYTOSIS 2+; POLYCHROMASIA 1+; TARGET CELLS 1+
[2017-11-03 05:51] LABS: HOWELL-JOLLY BODIES 1+; HYPOCHROMIA 1+
[2017-11-03 05:52] LABS: <PLATELET ESTIMATE> ADEQUATE; <PLT MORPHOLOGY> NORMAL PLT MORPH; MICROCYTOSIS 1+
[2017-11-03 06:58] VITALS: BP 117/73
[2017-11-03] MEDS ORDERED: POTASSIUM CHLORIDE 20 MEQ PACKET PO ONE ×2 (08:00→22:35)
[2017-11-03 08:14] VITALS: BP 123/71
[2017-11-03] MEDS: PANTOPRAZOLE 40 MG IV IVPush SCH ×2 (08:24→22:40)
[2017-11-03] MEDS: NYSTATIN 500,000 UNITS/5 ML UDC PO SCH ×2 (08:42→22:21)
[2017-11-03] MEDS: TOPIRAMATE 25 MG TABLET PO SCH (08:43)
[2017-11-03] MEDS ORDERED: POTASSIUM CHLORIDE 20 MEQ TAB.ER.PRT PO ONE (15:00)
[2017-11-03] MEDS ORDERED: SODIUM PHOSPHATE 4 MEQ/ML IV SCH (15:00)
[2017-11-03] MEDS ORDERED: SODIUM PHOSPHATE 30 MMOL in SODIUM CHLORIDE 0.9% 500 ML IV ONE (15:30)
[2017-11-03 16:02] VITALS: BP 129/79
[2017-11-03] MEDS ORDERED: METOPROLOL TARTRATE 25 MG TABLET PO SCH (18:00)
[2017-11-03 20:38] VITALS: BP 127/76
[2017-11-03] MEDS: METOPROLOL TARTRATE 25 MG TABLET PO SCH (22:21)
[2017-11-04 02:15] VITALS: BP 119/78
[2017-11-04] MEDS: MORPHINE SULFATE 4 MG/ML, 1ML IVPush PRN ×5 (02:18→22:14)
[2017-11-04] MEDS: ALBUMIN HUMAN 25% 100 ML IV SCH ×4 (02:19→20:46)
[2017-11-04] MEDS: ENOXAPARIN 80 MG/0.8 ML SQ SCH ×2 (02:19→14:47)
[2017-11-04] MEDS: ONDANSETRON 2MG/ML, 2ML IVPush PRN ×4 (02:25→22:34)
[2017-11-04] MEDS: FUROSEMIDE 20 MG/2 ML IV SCH ×4 (04:40→22:34)
[2017-11-04 05:10] LABS: MEAN CORPUSCULAR HEMOGLOBIN 31.3 pg (27.0-34.8); MEAN CORPUSCULAR HGB CONC 32.3 g/dL (32.4-35.8); MEAN PLATELET VOLUME 8.3 fL (7.4-10.4); PLATELET COUNT 164 x10^3/uL (130-400); RED BLOOD COUNT 2.54 x10^6/uL (3.82-5.3); RED CELL DISTRIBUTION WIDTH 23.4 % (9.6-15.2)
[2017-11-04 05:14] LABS: ALBUMIN 4.2 g/dL (3.4-5.0); ANION GAP 8 mmol/L (5-15); CALCIUM 9.2 mg/dL (8.5-10.1); CHLORIDE 107 mmol/L (98-107)
[2017-11-04 05:18] LABS: ALANINE AMINOTRANSFERASE 39 U/L (12-78); ALKALINE PHOSPHATASE 707 U/L (45-117); BILIRUBIN,TOTAL 1.9 mg/dL (0.2-1.0); CREATININE 0.99 mg/dL (0.55-1.02); TOTAL PROTEIN 6.7 g/dL (6.4-8.2)
[2017-11-04] MEDS: LEVOTHYROXINE 100 MCG TABLET PO SCH (05:38)
[2017-11-04 05:45] LABS: MD YES
[2017-11-04 05:49] LABS: BANDS%(MANUAL) 1 % (0-7); EOS% (MANUAL) 1 % (1-7); LYMPHS% (MANUAL) 2 % (22-44); METAMYELOCYTES% (MANUAL) 1 % (0-1); MONOS% (MANUAL) 3 % (2-9); NRBC % (MANUAL) 12 % (0-1); SEGS% (MANUAL) 92 % (42-75)
[2017-11-04 05:50] LABS: ANISOCYTOSIS 2+; HYPOCHROMIA 1+
[2017-11-04 05:51] LABS: POLYCHROMASIA 1+
[2017-11-04 05:52] LABS: <PLATELET ESTIMATE> ADEQUATE; <PLT MORPHOLOGY> NORMAL PLT MORPH; HOWELL-JOLLY BODIES 1+; MICROCYTOSIS 1+; TARGET CELLS 1+
[2017-11-04 06:58] VITALS: BP 122/78
[2017-11-04] MEDS: TOPIRAMATE 25 MG TABLET PO SCH (07:54)
[2017-11-04] MEDS: NYSTATIN 500,000 UNITS/5 ML UDC PO SCH ×2 (07:54→22:14)
[2017-11-04] MEDS: METOPROLOL TARTRATE 25 MG TABLET PO SCH ×3 (07:55→22:15)
[2017-11-04] MEDS: PANTOPRAZOLE 40 MG IV IVPush SCH (07:55)
[2017-11-04] MEDS: LORazepam 2 MG/ML, 1ML IVPush PRN (10:47)
[2017-11-04 13:51] VITALS: BP 124/83
[2017-11-04 14:00] LABS: TROPONIN I 0.151 ng/mL (0.000-0.045)
[2017-11-04] MEDS ORDERED: RIVAROXABAN 15 MG TABLET PO SCH (18:11)
[2017-11-04 21:09] VITALS: BP 129/82
[2017-11-04] MEDS: PANTOPROZOLE 40MG TABLET PO SCH (22:14)
[2017-11-05 01:01] LABS: CULTURE INDICATED? YES; MICROSCOPIC INDICATED
[2017-11-05 01:08] VITALS: BP 118/75
[2017-11-05] MEDS: MORPHINE SULFATE 4 MG/ML, 1ML IVPush PRN ×2 (01:27→06:18)
[2017-11-05] MEDS: ALBUMIN HUMAN 25% 100 ML IV SCH ×4 (02:36→20:55)
[2017-11-05] MEDS: FUROSEMIDE 20 MG/2 ML IV SCH ×4 (05:22→23:32)
[2017-11-05] MEDS: LEVOTHYROXINE 100 MCG TABLET PO SCH (05:23)
[2017-11-05 06:12] LABS: ALANINE AMINOTRANSFERASE 37 U/L (12-78); ANION GAP 9 mmol/L (5-15); CALCIUM 8.7 mg/dL (8.5-10.1); CHLORIDE 102 mmol/L (98-107); MEAN CORPUSCULAR HEMOGLOBIN 31.2 pg (27.0-34.8); MEAN CORPUSCULAR HGB CONC 32.6 g/dL (32.4-35.8); MEAN CORPUSCULAR VOLUME 95.5 fL (80-100); MEAN PLATELET VOLUME 8.9 fL (7.4-10.4); PLATELET COUNT 153 x10^3/uL (130-400); RED BLOOD COUNT 2.41 x10^6/uL (3.82-5.3); RED CELL DISTRIBUTION WIDTH 23.3 % (9.6-15.2)
[2017-11-05 06:15] LABS: ALKALINE PHOSPHATASE 711 U/L (45-117); BILIRUBIN,TOTAL 2.4 mg/dL (0.2-1.0); TOTAL PROTEIN 6.3 g/dL (6.4-8.2)
[2017-11-05] MEDS: ONDANSETRON 2MG/ML, 2ML IVPush PRN ×2 (06:18→11:14)
[2017-11-05 06:36] LABS: MD YES
[2017-11-05 06:38] LABS: EOS#(MANUAL) 0.18 x10^3/uL (0.0-0.4); EOS% (MANUAL) 1 % (1-7); LYMPH#(MANUAL) 0.18 x10^3/uL (1-3.4); LYMPHS% (MANUAL) 1 % (22-44); METAMYELOCYTES# (MANUAL) 0.18 x10^3/uL (0-0); METAMYELOCYTES% (MANUAL) 1 % (0-1); MONOS% (MANUAL) 9 % (2-9); SEG#(MANUAL) 15.66 x10^3/uL (1.8-6.8); SEGS% (MANUAL) 88 % (42-75)
[2017-11-05 06:39] LABS: ANISOCYTOSIS 2+; HYPOCHROMIA 1+; MICROCYTOSIS 1+; NRBC % (MANUAL) 3 % (0-1); POLYCHROMASIA 1+; TARGET CELLS 1+
[2017-11-05 06:41] LABS: <PLATELET ESTIMATE> ADEQUATE; <PLT MORPHOLOGY> NORMAL PLT MORPH; HOWELL-JOLLY BODIES 1+
[2017-11-05 06:54] VITALS: BP 122/79
[2017-11-05] MEDS: PANTOPROZOLE 40MG TABLET PO SCH ×2 (07:18→20:56)
[2017-11-05] MEDS: TOPIRAMATE 25 MG TABLET PO SCH (07:18)
[2017-11-05] MEDS: METOPROLOL TARTRATE 25 MG TABLET PO SCH ×2 (07:18→20:56)
[2017-11-05] MEDS: RIVAROXABAN 15 MG TABLET PO SCH ×2 (07:18→15:55)
[2017-11-05] MEDS: NYSTATIN 500,000 UNITS/5 ML UDC PO SCH ×2 (07:19→20:55)
[2017-11-05] MEDS ORDERED: POTASSIUM CHLORIDE 20 MEQ TAB.ER.PRT PO ONE (07:30)
[2017-11-05] MEDS: LORazepam 2 MG/ML, 1ML IVPush PRN (11:13)
[2017-11-05] MEDS: morphine SULFATE 10 MG/ML, 1ML IVPush PRN ×2 (11:14→15:56)
[2017-11-05 12:13] LABS: TROPONIN I 0.096 ng/mL (0.000-0.045)
[2017-11-05 13:01] VITALS: BP 126/79
[2017-11-05 13:04] VITALS: BP 120/83
[2017-11-05 18:54] VITALS: BP 120/79
[2017-11-06 01:07] VITALS: BP 114/71
[2017-11-06] MEDS: morphine SULFATE 10 MG/ML, 1ML IVPush PRN ×7 (01:48→20:31)
[2017-11-06] MEDS: ALBUMIN HUMAN 25% 100 ML IV SCH ×4 (02:38→22:31)
[2017-11-06] MEDS: ONDANSETRON 2MG/ML, 2ML IVPush PRN ×2 (04:50→14:31)
[2017-11-06] MEDS: LEVOTHYROXINE 100 MCG TABLET PO SCH (04:51)
[2017-11-06] MEDS: FUROSEMIDE 20 MG/2 ML IV SCH ×3 (04:51→18:02)
[2017-11-06 07:58] VITALS: BP 120/74
[2017-11-06] MEDS: PANTOPROZOLE 40MG TABLET PO SCH ×2 (09:21→20:31)
[2017-11-06] MEDS: METOPROLOL TARTRATE 25 MG TABLET PO SCH ×2 (09:21→20:31)
[2017-11-06] MEDS: RIVAROXABAN 15 MG TABLET PO SCH ×2 (09:22→18:02)
[2017-11-06] MEDS: NYSTATIN 500,000 UNITS/5 ML UDC PO SCH ×2 (09:22→20:32)
[2017-11-06] MEDS: TOPIRAMATE 25 MG TABLET PO SCH (09:22)
[2017-11-06] MEDS: AMPICILLIN/SULBACTAM 3 GM in SODIUM CHLORIDE 0.9% 100 ML IV SCH ×2 (11:45→18:02)
[2017-11-06] MEDS ORDERED: POTASSIUM CHLORIDE 10% 40 MEQ/30 ML UDC ONE (13:24)
[2017-11-06] MEDS ORDERED: POTASSIUM CHLORIDE 10% 40 MEQ/30 ML UDC PO ONE ×2 (13:30→16:00)
[2017-11-06] MEDS ORDERED: POTASSIUM CHLORIDE 10% 40 MEQ/30 ML UDC PO SCH (13:30)
[2017-11-06] MEDS ORDERED: MAGNESIUM SULFATE PMX 2GM/50ML 50 ML IV ONE (13:30)
[2017-11-06 17:59] VITALS: BP 108/73
[2017-11-06 18:14] LABS: ANION GAP 7 mmol/L (5-15); CALCIUM 9.2 mg/dL (8.5-10.1); CHLORIDE 99 mmol/L (98-107); CREATININE 1.15 mg/dL (0.55-1.02)
[2017-11-06 19:19] VITALS: BP 113/75
[2017-11-07] VITALS (8 sets, daily range): BP systolic 101–129; BP diastolic 65–83
[2017-11-07] MEDS: FUROSEMIDE 20 MG/2 ML IV SCH ×4 (00:01→18:35)
[2017-11-07] MEDS: AMPICILLIN/SULBACTAM 3 GM in SODIUM CHLORIDE 0.9% 100 ML IV SCH ×2 (00:26→06:31)
[2017-11-07] MEDS: morphine SULFATE 10 MG/ML, 1ML IVPush PRN ×5 (00:26→21:12)
[2017-11-07] MEDS: ALBUMIN HUMAN 25% 100 ML IV SCH ×4 (04:46→22:32)
[2017-11-07 05:18] LABS: ANION GAP 8 mmol/L (5-15); CALCIUM 8.8 mg/dL (8.5-10.1); CHLORIDE 101 mmol/L (98-107); CREATININE 1.06 mg/dL (0.55-1.02)
[2017-11-07 05:39] LABS: MEAN CORPUSCULAR HEMOGLOBIN 31.5 pg (27.0-34.8); MEAN CORPUSCULAR HGB CONC 32.7 g/dL (32.4-35.8); MEAN CORPUSCULAR VOLUME 96.3 fL (80-100); MEAN PLATELET VOLUME 9.3 fL (7.4-10.4); PLATELET COUNT 150 x10^3/uL (130-400); RED BLOOD COUNT 2.21 x10^6/uL (3.82-5.3); RED CELL DISTRIBUTION WIDTH 23.9 % (9.6-15.2)
[2017-11-07] MEDS: LEVOTHYROXINE 100 MCG TABLET PO SCH (06:30)
[2017-11-07 06:31] LABS: MD YES
[2017-11-07 06:32] LABS: BAND#(MANUAL) 0.17 x10^3/uL; BANDS%(MANUAL) 1 % (0-7); BASOS#(MANUAL) 0.17 x10^3/uL (0-0.1); BASOS% (MANUAL) 1 % (0-1); EOS#(MANUAL) 0.34 x10^3/uL (0.0-0.4); EOS% (MANUAL) 2 % (1-7); LYMPH#(MANUAL) 0.34 x10^3/uL (1-3.4); LYMPHS% (MANUAL) 2 % (22-44); MONOS% (MANUAL) 7 % (2-9); SEG#(MANUAL) 14.88 x10^3/uL (1.8-6.8); SEGS% (MANUAL) 87 % (42-75)
[2017-11-07 06:34] LABS: ANISOCYTOSIS 2+; HOWELL-JOLLY BODIES 1+; HYPOCHROMIA 1+; MICROCYTOSIS 1+; POLYCHROMASIA 1+; TARGET CELLS 1+
[2017-11-07 06:35] LABS: <PLATELET ESTIMATE> ADEQUATE; <PLT MORPHOLOGY> NORMAL PLT MORPH
[2017-11-07] MEDS: PANTOPROZOLE 40MG TABLET PO SCH ×2 (07:36→22:32)
[2017-11-07] MEDS: TOPIRAMATE 25 MG TABLET PO SCH (07:36)
[2017-11-07] MEDS: RIVAROXABAN 15 MG TABLET PO SCH ×3 (07:36→16:55)
[2017-11-07] MEDS: METOPROLOL TARTRATE 25 MG TABLET PO SCH ×2 (07:37→20:48)
[2017-11-07] MEDS: NYSTATIN 500,000 UNITS/5 ML UDC PO SCH ×2 (07:45→20:48)
[2017-11-07] MEDS: LORazepam 2 MG/ML, 1ML IVPush PRN ×2 (10:36→21:12)
[2017-11-07] MEDS: LINEZOLID PMX 600MG/300ML 300 ML IV SCH (12:17)
[2017-11-07] MEDS: OXYcodone IR 5MG TABLET PO PRN ×2 (13:34→18:32)
[2017-11-07] MEDS: ONDANSETRON 2MG/ML, 2ML IVPush PRN (13:34)
[2017-11-07] MEDS: POTASSIUM CHLORIDE 20 MEQ PACKET PO SCH (16:55)
[2017-11-08] MEDS: LINEZOLID PMX 600MG/300ML 300 ML IV SCH ×2 (00:32→12:18)
[2017-11-08] MEDS: FUROSEMIDE 20 MG/2 ML IV SCH ×4 (00:33→19:56)
[2017-11-08] MEDS: morphine SULFATE 10 MG/ML, 1ML IVPush PRN ×6 (00:33→22:18)
[2017-11-08 02:11] VITALS: BP 128/76
[2017-11-08] MEDS: OXYcodone IR 5MG TABLET PO PRN (02:42)
[2017-11-08] MEDS: ONDANSETRON 2MG/ML, 2ML IVPush PRN ×3 (02:42→17:41)
[2017-11-08] MEDS: ALBUMIN HUMAN 25% 100 ML IV SCH ×3 (05:02→18:19)
[2017-11-08 05:30] LABS: MEAN CORPUSCULAR HEMOGLOBIN 31.7 pg (27.0-34.8); MEAN CORPUSCULAR HGB CONC 33.4 g/dL (32.4-35.8); MEAN CORPUSCULAR VOLUME 95.1 fL (80-100); MEAN PLATELET VOLUME 9.7 fL (7.4-10.4); PLATELET COUNT 151 x10^3/uL (130-400); RED BLOOD COUNT 2.63 x10^6/uL (3.82-5.3); RED CELL DISTRIBUTION WIDTH 21.8 % (9.6-15.2)
[2017-11-08 05:33] LABS: ALBUMIN 4.5 g/dL (3.4-5.0); ANION GAP 9 mmol/L (5-15); CALCIUM 8.8 mg/dL (8.5-10.1); CHLORIDE 102 mmol/L (98-107); CREATININE 1.13 mg/dL (0.55-1.02)
[2017-11-08 06:19] LABS: MD YES
[2017-11-08 06:23] LABS: BAND#(MANUAL) 0.74 x10^3/uL; BANDS%(MANUAL) 4 % (0-7); LYMPH#(MANUAL) 0.55 x10^3/uL (1-3.4); LYMPHS% (MANUAL) 3 % (22-44); MONOS#(MANUAL) 0.92 x10^3/uL (0.3-2.7); MONOS% (MANUAL) 5 % (2-9); NRBC % (MANUAL) 2 % (0-1); SEG#(MANUAL) 16.19 x10^3/uL (1.8-6.8); SEGS% (MANUAL) 88 % (42-75)
[2017-11-08 06:25] LABS: ANISOCYTOSIS 2+; HYPOCHROMIA 1+; MICROCYTOSIS 1+; POLYCHROMASIA 1+
[2017-11-08 06:27] LABS: SPHEROCYTES 1+
[2017-11-08 06:29] LABS: HOWELL-JOLLY BODIES 1+; TARGET CELLS 2+
[2017-11-08 06:30] LABS: <PLATELET ESTIMATE> ADEQUATE; LARGE PLATELETS 1+
[2017-11-08] MEDS: LEVOTHYROXINE 100 MCG TABLET PO SCH (06:36)
[2017-11-08 06:46] VITALS: BP 117/69
[2017-11-08] MEDS: RIVAROXABAN 15 MG TABLET PO SCH ×2 (08:59→19:55)
[2017-11-08] MEDS: PANTOPROZOLE 40MG TABLET PO SCH ×2 (08:59→19:55)
[2017-11-08] MEDS: TOPIRAMATE 25 MG TABLET PO SCH (08:59)
[2017-11-08] MEDS: NYSTATIN 500,000 UNITS/5 ML UDC PO SCH ×2 (08:59→19:55)
[2017-11-08] MEDS: METOPROLOL TARTRATE 25 MG TABLET PO SCH ×2 (08:59→19:55)
[2017-11-08] MEDS: POTASSIUM CHLORIDE 20 MEQ PACKET PO SCH ×2 (09:00→17:42)
[2017-11-08] MEDS ORDERED: SODIUM PHOSPHATE 4 MEQ/ML IV SCH (11:30)
[2017-11-08] MEDS ORDERED: SODIUM PHOSPHATE 40 MEQ in SODIUM CHLORIDE 0.9% 500 ML IV ONE (11:30)
[2017-11-08 13:32] VITALS: BP 131/83
[2017-11-08] MEDS ORDERED: POTASSIUM CHLORIDE 20 MEQ TAB.ER.PRT ONE (17:35)
[2017-11-08] MEDS ORDERED: ALBUMIN HUMAN 25% 100 ML IV SCH (18:00)
[2017-11-08 19:33] VITALS: BP 118/67
[2017-11-08] MEDS ORDERED: FUROSEMIDE 20 MG/2 ML IV ONE (20:00)
[2017-11-09] MEDS: LINEZOLID PMX 600MG/300ML 300 ML IV SCH ×2 (00:21→12:45)
[2017-11-09] MEDS: ALBUMIN HUMAN 25% 100 ML IV SCH (02:06)
[2017-11-09 02:13] VITALS: BP 118/74
[2017-11-09] MEDS: FUROSEMIDE 20 MG/2 ML IV SCH (03:09)
[2017-11-09] MEDS: LEVOTHYROXINE 100 MCG TABLET PO SCH (05:38)
[2017-11-09 06:20] LABS: MEAN CORPUSCULAR HEMOGLOBIN 31.3 pg (27.0-34.8); MEAN CORPUSCULAR HGB CONC 32.5 g/dL (32.4-35.8); MEAN CORPUSCULAR VOLUME 96.1 fL (80-100); MEAN PLATELET VOLUME 9.5 fL (7.4-10.4); PLATELET COUNT 175 x10^3/uL (130-400); RED BLOOD COUNT 2.67 x10^6/uL (3.82-5.3); RED CELL DISTRIBUTION WIDTH 22.3 % (9.6-15.2)
[2017-11-09 06:28] LABS: ALBUMIN 4.4 g/dL (3.4-5.0); ANION GAP 11 mmol/L (5-15); CALCIUM 8.7 mg/dL (8.5-10.1); CHLORIDE 103 mmol/L (98-107); CREATININE 1.14 mg/dL (0.55-1.02)
[2017-11-09 06:43] LABS: MD YES
[2017-11-09 06:49] VITALS: BP 128/75
[2017-11-09 06:52] LABS: ANISOCYTOSIS 2+; HOWELL-JOLLY BODIES 1+; HYPOCHROMIA 1+; LYMPH#(MANUAL) 0.58 x10^3/uL (1-3.4); LYMPHS% (MANUAL) 3 % (22-44); MICROCYTOSIS 1+; MONOS#(MANUAL) 0.97 x10^3/uL (0.3-2.7); MONOS% (MANUAL) 5 % (2-9); NRBC % (MANUAL) 1 % (0-1); OVALOCYTES 1+; POLYCHROMASIA 1+; SEG#(MANUAL) 17.85 x10^3/uL (1.8-6.8); SEGS% (MANUAL) 92 % (42-75); TARGET CELLS 1+
[2017-11-09 06:53] LABS: <PLATELET ESTIMATE> ADEQUATE; LARGE PLATELETS 1+
[2017-11-09] MEDS ORDERED: POTASSIUM CHLORIDE 10% 40 MEQ/30 ML UDC PO ONE (07:00)
[2017-11-09] MEDS ORDERED: FOSFOMYCIN 3 GM PACKET PO ONE (07:30)
[2017-11-09] MEDS ORDERED: POTASSIUM CHLORIDE 40 MEQ in SODIUM CHLORIDE 0.9% 100 ML IV ONE (07:30)
[2017-11-09] MEDS: METOPROLOL TARTRATE 25 MG TABLET PO SCH (08:31)
[2017-11-09] MEDS: PANTOPROZOLE 40MG TABLET PO SCH (08:31)
[2017-11-09] MEDS: RIVAROXABAN 15 MG TABLET PO SCH ×2 (08:31→18:44)
[2017-11-09] MEDS: TOPIRAMATE 25 MG TABLET PO SCH (08:32)
[2017-11-09] MEDS: POTASSIUM CHLORIDE 20 MEQ PACKET PO SCH (08:33)
[2017-11-09] MEDS: NYSTATIN 500,000 UNITS/5 ML UDC PO SCH (08:33)
[2017-11-09] MEDS ORDERED: FUROSEMIDE 20 MG/2 ML IV SCH (09:00)
[2017-11-09] MEDS ORDERED: ALBUMIN HUMAN 25% 100 ML IV SCH (09:00)
[2017-11-09] MEDS: morphine SULFATE 10 MG/ML, 1ML IVPush PRN (11:20)
[2017-11-09 12:04] VITALS: BP 120/73
[2017-11-09] MEDS ORDERED: FURO20TA3 PO (15:15)
[2017-11-09] MEDS ORDERED: POTA20TA6 PO (15:15)
[2017-11-09] MEDS ORDERED: MORP-52 PO (15:26)
[2017-11-09] MEDS ORDERED: RIVA20TA PO (15:37)
[2017-11-09] MEDS ORDERED: LINE600T37 PO (16:01)
[2017-11-10] MEDS ORDERED: RIVAROXABAN 20 MG TABLET PO SCH (08:00)
== END 2017-11-09 19:34 | DRG 871 ==
LOC: ED 14:19 → EDIP 14:20 → ED 14:41 → 4EST 16:38 → 4WST 16:41 → 3NW 10-21 10:46 → 5SO 11-02 08:49 → 3NW 11-08 13:51
PROVIDERS: ADMIT Hospitalist; ATTEND Hospitalist
PROC: 0T9B70Z Drainage of Bladder with Drainage Device, Via Natural or Artificial Opening (ICD-10-PCS; principal; 2017-10-09)
PROC: 0DJ08ZZ Inspection of Upper Intestinal Tract, Via Natural or Artificial Opening Endoscopic (ICD-10-PCS; 2017-10-13)
PROC: 0DJD8ZZ Inspection of Lower Intestinal Tract, Via Natural or Artificial Opening Endoscopic (ICD-10-PCS; 2017-10-15)
PROC: 30233R1 Transfusion of Nonautologous Platelets into Peripheral Vein, Percutaneous Approach (ICD-10-PCS; 2017-11-07)
PROC: 30233N1 Transfusion of Nonautologous Red Blood Cells into Peripheral Vein, Percutaneous Approach (ICD-10-PCS; 2017-11-07)
DX: A41.9 Sepsis, unspecified organism (principal); E43 Unspecified severe protein-calorie malnutrition; J96.01 Acute respiratory failure with hypoxia; G93.41 Metabolic encephalopathy; J91.8 Pleural effusion in other conditions classified elsewhere; J18.1 Lobar pneumonia, unspecified organism; C78.7 Secondary malignant neoplasm of liver and intrahepatic bile duct; C79.51 Secondary malignant neoplasm of bone; I27.82 Chronic pulmonary embolism; E87.1 Hypo-osmolality and hyponatremia; C56.9 Malignant neoplasm of unspecified ovary; N13.30 Unspecified hydronephrosis; N39.0 Urinary tract infection, site not specified; I82.502 Chronic embolism and thrombosis of unspecified deep veins of left lower extremity; K92.2 Gastrointestinal hemorrhage, unspecified; R13.10 Dysphagia, unspecified; D89.9 Disorder involving the immune mechanism, unspecified; D64.9 Anemia, unspecified; E03.9 Hypothyroidism, unspecified; B95.2 Enterococcus as the cause of diseases classified elsewhere; Z68.29 Body mass index [BMI] 29.0-29.9, adult; Z88.8 Allergy status to other drugs, medicaments and biological substances; E87.6 Hypokalemia; F32.9 Major depressive disorder, single episode, unspecified; G43.909 Migraine, unspecified, not intractable, without status migrainosus; G89.29 Other chronic pain; I10 Essential (primary) hypertension; I48.91 Unspecified atrial fibrillation; K21.9 Gastro-esophageal reflux disease without esophagitis; W18.39XA Other fall on same level, initial encounter; Y93.89 Activity, other specified; Y92.89 Other specified places as the place of occurrence of the external cause; Y99.8 Other external cause status; Z16.21 Resistance to vancomycin; Z79.01 Long term (current) use of anticoagulants; Z79.899 Other long term (current) drug therapy
CPT/HCPCS: 36415; 36430; 70450; 71010; 71045; 71046; 71250; 71275; 74018; 74176; 74177; 74230; 80048; 80053; 80202; 81001; 82040; 82140; 82272; 82542; 83605; 83735; 83880; 84100; 84132; 84145; 84436; 84443; 84484; 85014; 85018; 85025; 85520; 85610; 85730; 86850; 86900; 86923; 87040; 87070; 87077; 87086; 87186; 87205; 87324; 93005; 93306; 94640; 96361; 96365; 96375; J0295; J0456; J0696; J1644; J1650; J1940; J2020; J2250; J2405; J2543; J2550; J2704; J2997; J3010; J3370; J3480; J7060; J7620; P9047; Q9967; C9113; J2060; J2270; J2765; J3475; J7030; J7040; J7050; J7512; P9016; P9035; P9040